=== PATIENT | male | born 1965 | race Caucasian/White ===

== ENCOUNTER 2016-09-23 10:28 | Inpatient (IN) | payer MEDICARE, OTHER ==
[2016-09-23] VITALS (12 sets, daily range): BP systolic 109–153; BP diastolic 67–93; PULSE 107–178; RESP 20–26; O2SAT 93–99
[~2016-09-23] VITALS: Ht 165.1 cm; Wt 96.7 kg
--- NOTE | 2016-09-23 10:57 | ED.REPORT ---
HPI-General Illness Date of Service Sep 23, 2016 ED Provider: Dr. Zuniga 51 year old male with a hx of alcoholism, TBI (1990) and HLD who [facility], confusion and palpitations since last night. Pt's last drink was 24 hours ago. He reports a TAO but denies nausea , vomiting, pain and melena. Yesterday the pt was noted to have multiple seizures. They state that his heart rate has been elevated (as high as 200) since yesterday. Pt denies a hx of Afib. His last period of sobriety was 2 years ago for 30 days while in rehab. Nursing Notes Stated Complaint: DISORIENTED/HIGH HR Chief Complaint: General Complaint Nursing Notes Reviewed: Yes Allergies: Coded Allergies: haloperidol (Verified Adverse Reaction, Severe, Agitation, 09/23/16) General Time Seen by MD: 10:57 Chief Complaint Multip medical complaints Hx Obtained From: Patient, Other family... Arrived By: Wheelchair Onset Occurred: Yesterday Symptom Duration: Since onset Severity: Current: No pain currently Associated with: Denies: Fever, Nausea, Shortness of breath, Vomiting Pertinent Negative: Relieved by nothing Similar Sx Previous: Yes Past Medical History Past Medical History Alcoholism TBI Reports: Hyperlipidemia, Denies: Diabetes mellitus Past Surgical History None Smoking History Never Smoker Social History Alcohol Use: >5 per day Drug Use: Denies drug use Other Social History: Smokeless tobacco, From out of town Review of Systems Full Review of Systems Constitutional: Reports: Fatigue, Denies: Chills, Fever Respiratory: Denies: Shortness of breath Cardiovascular: Reports: Palpitations GI: Denies: Melena, Nausea, Vomiting Neurologic: Reports: Confusion, Headache, Seizure Complete sys rev & neg: except as marked. Physical Exam Vital Signs Vital Signs Date Time Temp Pulse Resp B/P Pulse Ox O2 Delivery O2 Flow Rate FiO2 09/23/16 15:10 117 26 135/67 94 Room Air 09/23/16 14:08 110 20 126/77 99 Room Air 09/23/16 13:05 36.8 178 20 109/78 99 Room Air 09/23/16 10:30 36.8 130 24 153/93 95 Initial VS: Reviewed Head / Eyes: Atraumatic, Normocephalic, PERRL ENT: Conjunctiva normal, No scleral icterus Neck: Supple, Full range of motion Respiratory: Breath sounds normal, Clear to auscultation, No respiratory distress Extremities: Vascular intact, Neuro intact Psychiatric: Mood/affect normal, Behavior normal General/Constitutional: Awake, Alert Cardiovascular: Peripheral circulation NL Heart Rate / Rhythm: Positive: Irreg irregular rhythm, Tachycardia Skin: Warm Color / Condition: Positive: Diaphoresis present Rash / Lesion Notes: Erythematous macular rash to chest Neurologic: Oriented X3, Speech NL Tremulous Interpretation & Diagnostics Lab Results Interpretation Result Diagram: 09/23/16 1138 09/23/16 1138 Test 09/23/16 11:38 09/23/16 14:53 White Blood Count 15.1th/mm3 (3.8-10.1) Red Blood Count 4.59mil/mm3 (4.40-5.80) Hemoglobin 14.9g/dL (13.8-17.2) Hematocrit 43.6% (41.0-50.0) Mean Corpuscular Volume 95.0fL (81-100) Mean Corpuscular Hemoglobin 32.5pg (27.0-35.0) Mean Corpuscular Hemoglobin Concent 34.2% (32.0-37.0) Red Cell Distribution Width 14.0% (12.3-15.4) Platelet Count 147bil/L (150-400) Neutrophils (%) (Auto) 86.6% (40-74) Lymphocytes (%) (Auto) 4.6% (14-46) Monocytes (%) (Auto) 8.0% (4-12) Eosinophils (%) (Auto) 0.1% (0-5) Basophils (%) (Auto) 0.2% (0-3) Prothrombin Time 13.3sec (8.1-12.5) Prothromb Time International Ratio 1.24ratio Sodium Level 135mEq/L (134-144) Potassium Level 3.3mEq/L (3.5-5.2) Chloride Level 93mEq/L (97-108) Carbon Dioxide Level 21mmol/L (18-29) Blood Urea Nitrogen 8mg/dL (6-24) Creatinine 0.90mg/dL (0.76-1.27) Estimat Glomerular Filtration Rate 95mL/min (>59) Glucose Level 124mg/dL (60-99) Calcium Level 9.4mg/dL (8.5-10.1) Magnesium Level 1.4mg/dL (1.6-2.6) Total Bilirubin 1.7mg/dL (0.0-1.2) Aspartate Amino Transf (AST/SGOT) 162U/L (0-50) Alanine Aminotransferase (ALT/SGPT) 68U/L (0-44) Alkaline Phosphatase 161U/L (25-150) Troponin T < 0.010ug/L (0.0-0.011) Total Protein 8.6g/dL (6.4-8.4) Albumin 4.0g/dL (3.4-5.0) Hold [place] Top Tube Received (Received) Pro-B-Type Natriuretic Peptide 1263pg/mL (0-121) General Lab Results Interp 1: Labs reviewed ECG Interpretation ECG Interpretation: Afib with a rate of 167 Anterior infarct, old Time: 10:54 Interpreted by: ED physician X-Ray Chest Interpretation Chest Xray Interpretation: IMPRESSION: No acute cardiopulmonary abnormality Dictated by: Guy Whitman M.D. on 09/23/2016 at 11:44 View: Portable, 1 view Interpretation / Wet Read by: Interpret - Radiologist Re-Eval/Medical Decision Med Decision/Clinical Course Diltiazem did not have much effect on the atrial fibrillation. We went ahead and used metoprolol which seemed to work better. IV hydration and electrolyte repletion seemed to have helped as well. Time of Eval: 14:07 Re-Evaluation/Progress Note: Pt updated of labs, imaging and ECG. Recommended admission. Pt understands and agrees with plan. All questions addressed. Time of Eval: 14:30 Re-Evaluation/Progress Note: Pt still in Afib with RVR. Consultation : Referral / Consult Name: Kiarra Cast MD Consulted With: Hospitalist Call Returned at: 14:15 Industrial Maintenance Technician: Will see patient, Agrees with eval, Agrees with plan, Accepts admit Counseled Regarding: Diagnosis, Lab results, Need for admission Discharge & Departure Primary Impression: Atrial fibrillation with RVR Additional Impression: Alcohol withdrawal Complication of substance-induced condition: with unspecified complication Qualified Code: F10.239 - Alcohol dependence with withdrawal, unspecified Disposition: ADMITTED TO HOSPITAL Discharge Condition All VS Reviewed: Yes Scribe Attestation Portions of this note were transcribed by Jackie Montiel. I, (Dr. Zuniga) personally performed the history, physical exam and medical decision-making; I reviewed and confirmed the accuracy of the information in the transcribed note. Signed by: Jackie Montiel. 09/23/2016, Keron Riddle MD Sep 23, 2016 10:57 Jackie Montiel Sep 23, 2016 11:01
[2016-09-23] MEDS ORDERED: Diltiazem 5 mg/mL 5 mL Inj IVPUSH ONE ×2 (11:20→12:10)
--- NOTE | 2016-09-23 11:46 | DRSVH ---
PROCEDURE: X-RAY CHEST ONE VIEW, PORTABLE ([id number]) INDICATIONS: SOB TECHNIQUE: One view of the chest was acquired. COMPARISON: None. FINDINGS: Surgical changes and devices: None. Lungs and pleura: No pleural effusions or pneumothorax. Mild elevation right hemidiaphragm. Lungs ar e clear. Mediastinum: Mediastinal contours appear normal. Heart size is normal. Bones and chest wall: No suspicious bony lesions. Overlying soft tissues appear unremarkable. IMPRESSION: No acute cardiopulmonary abnormality Dictated by: Guy Whitman M.D. on 09/23/2016 at 11:44 Approved by: Guy Whitman M.D. on 09/23/2016 at 11:44
[2016-09-23 11:52] LABS: BASOPHILS % (AUTO) 0.2 % (0-3); EOSINOPHILS % (AUTO) 0.1 % (0-5); Mean Corpuscular Hemoglobin 32.5 pg (27.0-35.0); NEUTROPHILS % (AUTO) 86.6 % (40-74); Platelet Count 147 bil/L (150-400)
[2016-09-23] MEDS ORDERED: Multivitamin w/Vit K Inj 10 ML, Thiamine Inj 100 MG, Folic Acid Inj 1 MG, Magnesium Sul... IV ONE ×5 (12:08)
[2016-09-23] MEDS ORDERED: 0.9% Sodium Chloride 1,000 ML IV ONE (12:10)
[2016-09-23 12:11] LABS: INR 1.24 ratio
[2016-09-23 12:22] LABS: TROPONIN T < 0.010 ug/L (0.0-0.011)
[2016-09-23 12:30] LABS: Magnesium 1.4 mg/dL (1.6-2.6)
[2016-09-23] MEDS ORDERED: Magnesium Sulf 2 Gm/50mL Water 2 GM in IV Premix 1 EACH IV ONE (13:20)
[2016-09-23] MEDS ORDERED: MeTOProlol 1 mg/mL 5 mL Inj IVPUSH SCH (13:25)
[2016-09-23] MEDS ORDERED: Ondansetron 2 mg/mL 2 mL Inj IVPUSH PRN (15:00)
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
[2016-09-23 17:56] LABS: Magnesium 2.2 mg/dL (1.6-2.6)
--- NOTE | 2016-09-23 18:44 | NUR ---
Admit Pt admit finished, telemetry on afib low 100's to 130's with exertion, IV SL, on RA, A&Ox3 but delayed and forgetful. Pt eating dinner and tolerating food and liquids well. Continuing to monitor.
[2016-09-23] MEDS: MeTOProlol 1 mg/mL 5 mL Inj IVPUSH PRN (18:55)
--- NOTE | 2016-09-23 19:02 | NUR ---
Afib 130's - 190's Per county program technician, pt HR increased to 130-190's at approx 1850. PRN metoprolol 5 mg given, notified. Continuing to monitor. NAKIA nurse aware. Addendum: 09/23/16 at 1922 by CLAUDIO FINE RN S/W , wants update on metoprolol effectiveness boyd. NAKIA nurse taking over will handle from here, she is calling county program technician now and will notify immediately.
[2016-09-23] MEDS ORDERED: Potassium Phos (mMol) Inj 15 MMOL in Dextrose 5% 250 ML IV ONE (19:40)
[2016-09-23] MEDS ORDERED: Diltiazem Inj 125 MG in 0.9% Sodium Chloride 100 ML, Pharmacy To Mix 1 EA IV SCH (19:40)
[2016-09-23] MEDS ORDERED: Lactulose 20 Gm/30 mL 30 mL Syrup PO ONE (19:40)
[2016-09-23] MEDS: MeTOProlol 1 mg/mL 5 mL Inj IVPUSH STA ×2 (20:11→20:38)
[2016-09-23] MEDS ORDERED: Diltiazem 5 mg/mL 5 mL Inj IV ONE (20:40)
[2016-09-23] MEDS: Divalproex (QD) 500 mg ER24 Tablet PO SCH (21:12)
[2016-09-23] MEDS: 0.9% Sodium Chloride 1,000 ML IV SCH (21:48)
[2016-09-23] MEDS ORDERED: HYDROmorphone 1 mg/mL Inj IVPUSH ONE (23:05)
[2016-09-23] MEDS ORDERED: Digoxin 0.25 mg/mL 2 mL Inj IV ONE (23:25)
[2016-09-24] VITALS (10 sets, daily range): BP systolic 113–139; BP diastolic 70–112; PULSE 70–173; RESP 12–36; O2SAT 90–99
[2016-09-24 02:07] LABS: Free Thyroxine Index 2.8 (1.2-4.9); Hepatitis A Antibody IgM Negative (Negative); Hepatitis B Core Antibody IgM Negative (Negative); Thyroxine (T4) 9.6 ug/dL (4.5-12.0)
[2016-09-24] MEDS: Digoxin 0.25 mg/mL 2 mL Inj IV SCH ×2 (03:17→08:18)
--- NOTE | 2016-09-24 03:36 | NUR ---
Tachycardia and CIWA overnight HR: At start of shift patient ranging between 130-190s. After IV metoprolol and multiple doses of valium patient down to 120s. Then immediatly back up to 145-150s and 170's with exertion. MD notified multiple times. Ambien administered. Later Digoxin IV push was ordered and brought HR down to 90-115. Digoxin IV now scheduled Q6 hours. Last dose given 0300 for HR 82 (double checked with night hospitalist) CIWA: Highest score 28. Last three scores 10,12,13.
[2016-09-24] MEDS: 0.9% Sodium Chloride 1,000 ML IV SCH ×3 (06:23→22:02)
[2016-09-24] MEDS ORDERED: DIVA500T14 PO (06:41)
[2016-09-24] MEDS ORDERED: OLAN10TA19 PO (06:42)
[2016-09-24] MEDS ORDERED: LIP40 PO (06:42)
[2016-09-24] MEDS ORDERED: MULT-1103 PO (06:44)
[2016-09-24 07:43] LABS: Mean Corpuscular Hemoglobin 31.8 pg (27.0-35.0); Mean Corpuscular Volume 97.9 fL (81-100)
[2016-09-24] MEDS ORDERED: Influenza (Adult) Vaccine 0.5 mL Syringe IM ONE (08:30)
[2016-09-24] MEDS: Multivit-Miner-Folic Acid-Iron Tablet PO SCH (08:45)
[2016-09-24] MEDS ORDERED: KCl 40 mEq/D5W 500 mL 40 MEQ in IV Premix 1 EACH IV ONE (09:30)
[2016-09-24] MEDS ORDERED: MeTOProlol 1 mg/mL 5 mL Inj IVPUSH PRN (10:30)
--- NOTE | 2016-09-24 10:33 | PCM.PNMED ---
Subjective Date of Service Sep 24, 2016 Subjective This morning the patient states that he must be out of here by Tuesday because [facility]. He also said he should be up walking around. When told that his HR can get up to 160 with any movement, he states that his legs are getting weak being in bed and that is why his HR goes up. He is agitated and doesn't know how a bunch of chemicals can help his heart. Exam Vital Signs Vital Sign - Last Date Time Temp Pulse Resp B/P Pulse Ox O2 Delivery O2 Flow Rate FiO2 09/24/16 10:18 36.6 115 20 124/82 93 Room Air 09/23/16 22:58 2.00 Intake and Output 09/23/16 09/23/16 09/24/16 Cumulative From/Thru 15:00 23:00 07:00 09/23/16 10:30 - 09/24/16 06:27 Intake Total 0 ml 1241 ml 1241 ml Output Total 400 ml 400 ml Balance -400 ml 1241 ml 841 ml Intake Oral 0 ml 0 ml IV Total 1241 ml 1241 ml Output Urine Total 400 ml 400 ml Exam General: alert, agitated but laying in bed Eyes: PERRL Mouth: mouth normal, mucous membranes moist/pink Neck: supple, no lymph nodes palpable Chest & Lungs: clear to auscultation, no adventitious breath sounds, no crackles , no wheeze Cardiovascular: tachycardia Pulses: Radial (present and equal), Dorsalis Pedi (present and equal) Abdomen: soft, non-tender, non-distended, normoactive bowel tones, unable to assess liver and spleen at this time because patient's agitation. Will re-assess Musculoskeletal: No swollen or erythematous joints Extremities: tremor in B/L hands and B/L LE Skin: Small healing wound on dorsum of left foot, 1cm, no edema, erythema, warmth Neurological: Grossly neurologically intact, normal speech. I was later able to observe his walking with assistance -- very unsteady on feet and slow. IVs and Medications Medications Reviewed: Medications were reviewed in detail Lab and Diagnostics Result Diagram: 09/24/1630 09/24/16 0630 X-Rays, CTs and MRIs Date of Service: 09/23/16 1044 PROCEDURE: X-RAY CHEST ONE VIEW, PORTABLE ([id number]) INDICATIONS: SOB TECHNIQUE: One view of the chest was acquired. COMPARISON: None. FINDINGS: Surgical changes and devices: None. Lungs and pleura: No pleural effusions or pneumothorax. Mild elevation right hemidiaphragm. Lungs are clear. Mediastinum: Mediastinal contours appear normal. Heart size is normal. Bones and chest wall: No suspicious bony lesions. Overlying soft tissues appear unremarkable. IMPRESSION: No acute cardiopulmonary abnormality Dictated by: Guy Whitman M.D. on 09/23/2016 at 11:44 Assessment & Plan RVR new onset atrial fibrillation, present on admission, acute -- new onset Atrial fibrillation RVR-- monitor electrolytes, troponin negative x1, T4 normal, -- echocardiogram pending -- ASA, IVF -- metoprolol and diltiazem for rate control -- no PCP follow up since 03/2016 at [place], likely noncompliant with medications -- telemetry, HR 100s when in bed, 170s with activity Delirium tremens. Present on admission. Ongoing --Visual hallucinations -- reported chronic seizures vs posturing since TBI hx. Close monitoring. On Depakote. Fall precautions. Bumpers on bed. -- [facility] protocol -- Hepatitis panel negative, consider ultrasound -- Note Haldol allergic -- elevated ammonia, lactulose -- Banana bag, replace electrolyte abnormalities Elevated glucose, present on admission, unknown chronicity -- Pending A1c Chronic issues known prior to admission, present on admission, resume home meds Traumatic brain injury/mental health Psychotic disorder dyslipidemia Diet advance as tolerated DVT prophylaxis lovenox with hold parameters ambulate Code full Disposition inpatient status VTE Prophylaxis: Sub-Q Enoxaparin Resuscitation Status: CPR: Attempt Resuscitation Sulema Arroyo DO Sep 24, 2016 10:33
[2016-09-24] MEDS: MeTOProlol 1 mg/mL 5 mL Inj IVPUSH PRN (11:54)
--- NOTE | 2016-09-24 12:34 | NUR ---
Social Work: Screening Data: Pt is a 51 y/o male admitted for a-fib, RVR. Pt's PCP is [facility], pt's [facility] is [facility]. Pt's readmit score is 1. Pt CIWA score this morning was 10. BOATBUILDER APPRENTICE WOOD will conduct CD assessment when appropriate. BOATBUILDER APPRENTICE WOOD will continue to follow. Assessment: Pt who is independent at baseline, alcohol withdrawal. Plan: BOATBUILDER APPRENTICE WOOD will conduct CD assessment when appropriate. Pt will d/c home via POV when medically stable. BOATBUILDER APPRENTICE WOOD will continue to follow. NORA Aguilar
[2016-09-24] MEDS ORDERED: Diltiazem 5 mg/mL 5 mL Inj IVPUSH ONE (12:45)
--- NOTE | 2016-09-24 12:46 | NUR ---
Nahidy Pt hr 140-180's given Metoprolol IV push, Valium IV, and digoxin with little relief. notified, given order for one time dose of Diltiazem 10 mg IV push, it pt can maintain HR 110 then will transfer to [facility] with Diltiazem drip. Will continue to monitor. Addendum: 09/24/16 at 1424 by SHERRI JOHNSON RN Unable to maintain HR 110 or below. Pushed one time dose of Diltiazem, and pt went into the 90s for approximately 30 minutes then has been between 115-170s. Notifying for orders to transfer pt to [facility].
--- NOTE | 2016-09-24 14:29 | NUR ---
spiritual care: pt request conversational visit. pt described brain injury and effects he lives with. jumbled content, but effort in communication. He shared the discharge plans mostly on his mind. pt amish and samaritan reformed background. he described how his tresa important to him prayer.
[2016-09-24] MEDS: Diltiazem Inj 125 MG in 0.9% Sodium Chloride 100 ML, Pharmacy To Mix 1 EA IV SCH (15:29)
--- NOTE | 2016-09-24 15:48 | NUR ---
Transfer Pt transferred to [facility]20[facility], report was given to Jenn Brady RN.
[2016-09-24] MEDS ORDERED: Dexmedetomidine 400 mCg/100 mL NS Premix IV ONE (16:26)
[2016-09-24] MEDS: Dexmedetomidine 400 mCg/100 mL 400 MCG in IV Premix 1 EACH IV SCH ×2 (16:28→21:43)
[2016-09-24] MEDS ORDERED: PHENobarbital 65 mg/mL Inj IV ONE (16:55)
--- NOTE | 2016-09-24 17:37 | NUR ---
Social Work: Update D: Per weigher and charger, pt transferred to CCU bed 2019 from [facility] due to uncontrolled heart rate. A: Pt who currently on CIWA protocol. P: HISTOLOGY ASSISTANT to follow up with pt once appropriate for CD assessment. HISTOLOGY ASSISTANT to continue to follow. NORA Schneider
--- NOTE | 2016-09-24 18:13 | NUR ---
Heart Rate/CIWA: Pt transferred [place] [facility] to start Cardizem gtt, tele AFib with rates 130s-200s, up to 220s with activity/agitation. CIWA on arrival to unit 23, rapidly escalating to mid 30s, pt in 4pt restraints r/t violent and agressive behavior. Pt given multiple doses of Valium, started on Precedex gtt, received Phenobarbital. See CCU flowsheet for details. Currently, Cardizem gtt off and tele AFib 70s with BP 100/48. Precedex gtt infusing at 0.6mcg/kg/hr, pt sleeping, pt machine tool technology instructor at bedside. Care ongoing.
[2016-09-24] MEDS: Divalproex (QD) 500 mg ER24 Tablet PO SCH (22:34)
[2016-09-25] VITALS (8 sets, daily range): BP systolic 113–130; BP diastolic 73–96; PULSE 69–80; RESP 22–28; O2SAT 94–98
[2016-09-25] MEDS: 0.9% Sodium Chloride 1,000 ML IV SCH ×3 (03:06→20:17)
[2016-09-25] MEDS: Dexmedetomidine 400 mCg/100 mL 400 MCG in IV Premix 1 EACH IV SCH ×2 (03:07→10:26)
[2016-09-25 04:09] LABS: BASOPHILS % (AUTO) 0.4 % (0-3); EOSINOPHILS % (AUTO) 1.8 % (0-5); MONOCYTES % (AUTO) 8.1 % (4-12); Mean Corpuscular Hemoglobin 32.3 pg (27.0-35.0); Mean Corpuscular Volume 98.8 fL (81-100); NEUTROPHILS % (AUTO) 75.1 % (40-74); Platelet Count 124 bil/L (150-400)
--- NOTE | 2016-09-25 06:41 | NUR ---
Mentation/Anxiety Pt remains on restraints. He is only oriented to self when awake. Pt will try and get out of bed, and is confused when totally awake. Speech mumbled with pt drowsy and tries to speak. Mostly non coherent speech. Per pt, the mumbled speech is abnormal for him "why am I talking like this" and will then drift off to sleep. HR was 70s throughout shift except when pt became awake and HR jumped to 120s with pt agitation. Care ongoing
[2016-09-25] MEDS ORDERED: KCl 40 mEq/D5W 500 mL 40 MEQ in IV Premix 1 EACH IV ONE (07:35)
--- NOTE | 2016-09-25 08:22 | DRSVH ---
PROCEDURE: X-RAY CHEST ONE VIEW, PORTABLE ([id number]) INDICATIONS: hypoxia pulmonary edema TECHNIQUE: One view of the chest was acquired. COMPARISON: None. FINDINGS: Surgical changes and devices: None. Lungs and pleura: Lung volumes are low. There is diffuse interstitial prominence. Mediastinum: Mediastinal contours appear normal. Heart size is enlarged. Bones and chest wall: No suspicious bony lesions. Overlying soft tissues appear unremarkable. IMPRESSION: Interstitial prominence and cardiomegaly suggesting congestive failure. Dictated by: Mikala Bagley M.D. on 09/25/2016 at 8:20 Approved by: Mikala Bagley M.D. on 09/25/2016 at 8:20
[2016-09-25] MEDS: Multivit-Miner-Folic Acid-Iron Tablet PO SCH (09:57)
--- NOTE | 2016-09-25 13:59 | PCM.PNMED ---
Subjective Date of Service Sep 25, 2016 Subjective pt required significant dose of valium, phenobarbital, eventually Precedex gtt, In AM, pt looked too lethargic, didn't follow commands Exam Vital Signs Vital Sign - Last Date Time Temp Pulse Resp B/P Pulse Ox O2 Delivery O2 Flow Rate FiO2 09/25/16 12:30 37.3 72 23 121/82 97 OxyMask 4.00 Intake and Output 09/24/16 09/24/16 09/25/16 Cumulative From/Thru 15:00 23:00 07:00 09/23/16 10:30 - 09/25/16 06:37 Intake Total 2042 ml 2285 ml 1773 ml 7341 ml Output Total 1300 ml 1100 ml 2800 ml Balance 742 ml 1185 ml 1773 ml 4541 ml Intake Oral 1000 ml 1952 ml 200 ml 3152 ml IV Total 1042 ml 333 ml 1573 ml 4189 ml Output Urine Total 1300 ml 1100 ml 2800 ml # Voids 4 3 2 9 # Bowel Movements 2 2 0 4 Exam obese male, NAD, lethargic, unable to assess tongue fasciulation, PERRLA no JVD, MMM, no LAD RRR, nl s1, s2 no mrg CTAB, no w,c S,distended,NT,normoactive BS+ warm, no edema, pulses 2/2 IVs and Medications Medications Reviewed: Medications were reviewed in detail Lab and Diagnostics Result Diagram: 09/25/165 09/25/16 033 X-Rays, CTs and MRIs Date of Service: 09/23/16 1044 PROCEDURE: X-RAY CHEST ONE VIEW, PORTABLE ([id number]) INDICATIONS: SOB TECHNIQUE: One view of the chest was acquired. COMPARISON: None. FINDINGS: Surgical changes and devices: None. Lungs and pleura: No pleural effusions or pneumothorax. Mild elevation right hemidiaphragm. Lungs are clear. Mediastinum: Mediastinal contours appear normal. Heart size is normal. Bones and chest wall: No suspicious bony lesions. Overlying soft tissues appear unremarkable. IMPRESSION: No acute cardiopulmonary abnormality Dictated by: Guy Whitman M.D. on 09/23/2016 at 11:44 Assessment & Plan 51yo M w/ active ETOH abuse, psychotic d/o, TBI, HLD p/w reporeted seizure, active hallucinations, concerning for DTs. acute, active #Delirium tremens given severe autonomic instabilities, fevers, significant CIWA scores, high benzo requirement, Present on admission. failed CIWA initially , required phenobarbital, currently sedated with Precedex, maintained airways. -will primary use benzo, librium 50mg q6h and taper down Precedex if possible -valium as needed per CIWA protocol -replete Mg, K as needed -frequent neurocheck, #RVR new onset atrial fibrillation in the setting of DTs, new onset, controlled with diltiazem gtt, switch to oral, rate now in target -FU TTE, -cw metoprolol 25mg bid for now -will do stratification, PQT3SCEC6 score, consider AC, however, questionable given substance abuse, noncompliance #TBI with seizure d/o, reported seizure could be from DTs -cw Depakote, avoid new med lowering seizure threshold. chronic, stable #Elevated glucose, present on admission, a1c 6.3 #Psychotic disorder, will investigate further hx, initially hallucination could possible from underlying psych dz, cw olanzapine #HLD, cw lipitor dvt ppx:LMWH diet: NPO, advance as tolerate full code dispo: likely 2-3days given active withdrawal VTE Prophylaxis: Sub-Q Enoxaparin Resuscitation Status: CPR: Attempt Resuscitation Time spent 35min Billie Galeas MD Sep 25, 2016 13:58
[2016-09-25] MEDS: Diltiazem Inj 125 MG in 0.9% Sodium Chloride 100 ML, Pharmacy To Mix 1 EA IV SCH (14:35)
[2016-09-25] MEDS: chlordiazePOXIDE 25 mg Capsule PO PRN (16:58)
--- NOTE | 2016-09-25 17:22 | NUR ---
Mentation: CIWA 8-15, pt remains disoriented/tremulous/some hallucinations. Continues to be very impulsive/uncooperative while awake, restraints in place. Precedex gtt titrated down, currently at 0.3mcg/kg/hr, see CCU flowsheet for details. Given 50mg Librium per MD orders. Pt is intermittently incontinent, marizol care provided as needed, wearing brief. Care ongoing.
[2016-09-25] MEDS: Divalproex (QD) 500 mg ER24 Tablet PO SCH (20:15)
[2016-09-26] VITALS (7 sets, daily range): BP systolic 115–130; BP diastolic 44–94; PULSE 60–109; RESP 16–21; O2SAT 93–99
[2016-09-26] MEDS: 0.9% Sodium Chloride 1,000 ML IV SCH ×3 (02:26→18:15)
[2016-09-26 04:25] LABS: BASOPHILS % (AUTO) 0.2 % (0-3); EOSINOPHILS % (AUTO) 2.4 % (0-5); MONOCYTES % (AUTO) 11.3 % (4-12); Mean Corpuscular Hemoglobin 32.3 pg (27.0-35.0); Mean Corpuscular Volume 98.2 fL (81-100); NEUTROPHILS % (AUTO) 73.3 % (40-74); Platelet Count 146 bil/L (150-400)
[2016-09-26 04:39] LABS: Magnesium 1.5 mg/dL (1.6-2.6); Phosphorus 3.1 mg/dL (2.5-4.9)
[2016-09-26] MEDS: Dexmedetomidine 400 mCg/100 mL 400 MCG in IV Premix 1 EACH IV SCH ×2 (04:56→18:14)
--- NOTE | 2016-09-26 05:02 | NUR ---
CIWA/Cardiac/Resp Patient resting calm this shift, titrated Precedex off at 0300 and then patient started getting restless at 0445, Restarted Precedex and titrated back to 0.3mcg/kg/hr. HR 150-170's with activity and moving in bed, patient stated "I want a few beers", HR decreased to the 80-90's within a few minutes when calm, O2 5L Oxymask, sats upper 90's, incontinent at times but also voids in urinal if asked if patient needs to void, AM labs drawn and MD notified of K 3.5 and Mag 1.5 and stated he will write orders for replacement, will continue to monitor, restraints DC'd at 0420. Addendum: 09/26/16 at 0508 by DEBI BOYLE RN Amended: Links added.
[2016-09-26] MEDS ORDERED: Magnesium Sulf 2 Gm/50mL Water 2 GM in IV Premix 1 EACH IV ONE (05:05)
[2016-09-26] MEDS ORDERED: Potassium Chloride 20 mEq SR Tablet PO ONE (05:05)
[2016-09-26] MEDS: Multivit-Miner-Folic Acid-Iron Tablet PO SCH (08:35)
[2016-09-26] MEDS: Diltiazem Inj 125 MG in 0.9% Sodium Chloride 100 ML, Pharmacy To Mix 1 EA IV SCH (14:35)
--- NOTE | 2016-09-26 16:18 | PCM.PNMED ---
Subjective Date of Service Sep 26, 2016 Subjective Garret Castellon is a 51-year-old gentleman with alcohol use disorder now in withdrawal, seizure disorder, psychotic disorder, obesity, and dyslipidemia who was admitted on 09/23/2016 in active alcohol withdrawal. Patient has since been difficult to manage on dexmedetomidine, diazepam, and phenobarbital. Patient was found sleeping comfortably with oxygen mask in place. He was moderately difficult to arouse, but could answer simple questions. Review of systems could not be completed, however, due to current medical/mental status. Overnight: Nursing notes reviewed. Patient was easily agitated and desaturated with increased doses of dexmedetomidine. . Exam Vital Signs Vital Sign - Last Date Time Temp Pulse Resp B/P Pulse Ox O2 Delivery O2 Flow Rate FiO2 09/26/16 12:11 Supplement Oxygen 09/26/16 12:09 37.0 74 20 120/94 99 2.00 Intake and Output 09/25/16 09/25/16 09/26/16 Cumulative From/Thru 15:00 23:00 07:00 09/23/16 10:30 - 09/26/16 05:27 Intake Total 1925 ml 9266 ml Output Total 1350 ml 4150 ml Balance 575 ml 5116 ml Intake Oral 600 ml 3752 ml IV Total 1325 ml 5514 ml Output Urine Total 1350 ml 4150 ml # Voids 2 11 # Bowel Movements 0 4 Exam General: No acute distress, well-developed, obese, sedated in withdrawal HEENT: Normocephalic, atraumatic. External ears without defect. Anicteric sclerae, moist conjunctivae, and no lid lag. Oropharynx free of erythema and cobble stoning with moist mucosa. Neck: Supple with full range of motion. No jugular venous distension. No bruits. No lymphadenopathy or thyromegaly. Cardiovascular: Regular rate and rhythm with no murmurs, rubs, or gallops appreciated Pulmonary: Clear to auscultation bilaterally with no crackles, wheezes, or rhonchi. Normal respiratory effort with no use of accessory muscles. Abdomen: Bowel tones present. Soft, nontender, distended. No hepatosplenomegaly or masses appreciated. Extremities: No clubbing, cyanosis, edema, or lymphadenopathy appreciated. Skin: Normal temperature, turgor, and texture; no rash, ulcers, or subcutaneous nodules appreciated. Neurological: Patient able to move all fours without gross focal deficit. Psychiatric: Still in active withdrawal. Arousable, but not coherent or oriented. . IVs and Medications Medications Reviewed: Medications were reviewed in detail Lab and Diagnostics Result Diagram: 09/26/16 0400 09/26/16 1014 X-Rays, CTs and MRIs X-RAY CHEST ONE VIEW, PORTABLE IMPRESSION: Interstitial prominence and cardiomegaly suggesting congestive failure. Dictated and approved by: Mikala Bagley M.D. on 09/25/2016 at 8:20 X-RAY CHEST ONE VIEW, PORTABLE IMPRESSION: No acute cardiopulmonary abnormality Dictated and approved by: Guy Whitman M.D. on 09/23/2016 at 11:44 . Assessment & Plan Garret Castellon is a 51-year-old gentleman with alcohol use disorder now in withdrawal, seizure disorder, psychotic disorder, obesity, and dyslipidemia who was admitted on 09/23/2016 in active alcohol withdrawal. Patient has since been difficult to manage on dexmedetomidine, diazepam, and phenobarbital. 1. Alcohol use disorder in active withdrawal, present on admission. Ongoing. - Continue dexmedetomidine, diazepam (intravenous), chlordiazepoxide as needed for sedation; minimize use as able, per [facility] protocol - Continue thiamine replacement Continue to monitor closely 2. Atrial fibrillation, new onset, present on admission. Controlled. - Continue rate control with oral metoprolol and as needed intravenous metoprolol - Consider need for anticoagulation prior to discharge; until then, continue with subcutaneous enoxaparin 3. Seizure disorder, chronic. Under therapy. - Likely secondary to previous traumatic brain injury or prior history of withdrawal - Continue divalproex Continue to monitor closely for new seizure activity 4. Tobacco use disorder, present on admission. Ongoing. - Continue nicotine replacement therapy 5. Dyslipidemia, chronic. Ongoing. - Continue atorvastatin 6. Uncharacterized psychiatric disorder, presumed chronic. Under therapy. - Continue olanzapine 7. Hypokalemia/hypomagnesemia. Ongoing. - Replacement protocol as needed Disposition: Anticipate discharge in 72-96 hours, pending resolution of alcohol withdrawal. . Pain Evaluation: Adequate Pain Control VTE Prophylaxis: Sub-Q Enoxaparin Resuscitation Status: CPR: Attempt Resuscitation Broderick He MD Sep 26, 2016 16:18
--- NOTE | 2016-09-26 19:12 | NUR ---
CIWA/cardiac Precedex gtt infusing at 0.2mcg/kg/hr for ETOH withdrawal. PRN Valium administered for CIWA > 10. Impulsivity and restlessness noted with decreased precedex dose, continuing to monitor and titrate gtt as necessary. Atrial fibrillation per kindergarten paraprofessional. HR controlled in the 70s to 90s at rest, 120s to 140s with exertion.
[2016-09-26] MEDS: Divalproex (QD) 500 mg ER24 Tablet PO SCH (19:29)
[2016-09-27] VITALS (9 sets, daily range): BP systolic 113–156; BP diastolic 80–116; PULSE 65–106; RESP 18–22; O2SAT 93–99
[2016-09-27 03:40] LABS: BASOPHILS % (AUTO) 0.4 % (0-3); EOSINOPHILS % (AUTO) 2.9 % (0-5); MONOCYTES % (AUTO) 11.8 % (4-12); Mean Corpuscular Hemoglobin 32.6 pg (27.0-35.0); NEUTROPHILS % (AUTO) 72.3 % (40-74); Platelet Count 178 bil/L (150-400)
[2016-09-27 04:03] LABS: Magnesium 1.6 mg/dL (1.6-2.6); Phosphorus 3.9 mg/dL (2.5-4.9)
[2016-09-27] MEDS: 0.9% Sodium Chloride 1,000 ML IV SCH ×3 (05:51→21:45)
--- NOTE | 2016-09-27 07:03 | NUR ---
Mentation/CIWA Pt still has hallucinations when awake. He would see people exchanging books in his room, and reports that his brother/step brother came and took him home for a bit, then brought him back. Speech is significantly less mumbled, but pt seems just as confused and disoriented as he was at start of shift. Easily reoriented most of the times. Precedex gtt titrated when pt not reoriented. Valium IVP when Precedex is not enough. Tolerated regimen well for most of night. Care ongoing
[2016-09-27] MEDS: Dexmedetomidine 400 mCg/100 mL 400 MCG in IV Premix 1 EACH IV SCH ×3 (07:51→23:33)
[2016-09-27] MEDS: Multivit-Miner-Folic Acid-Iron Tablet PO SCH (08:13)
--- NOTE | 2016-09-27 11:23 | NUR ---
Evaluation completed. Please go to "Notes" then click on "Assessments and Notes" (bottom left corner of screen). Then select appropriate discipline tab on top of screen.
--- NOTE | 2016-09-27 14:28 | NUR ---
Mentation Pt on 0.3mcg/kg/min Precedex gtt. Pt attempting to get out of bed, restless, and picking at lines. Alert to where he is but not why. Needs frequent instructions 5mg Valium given IV PRN. Pt fell asleep waking up stating he does not like the medicine. Notified [facility] team. Valium should be held while Ativan PO new order attempted. Precedex remains. Swallow eval completed. Stim diet with assist to sips of H20, notify ST if any coughing with swallowing. PT worked with pt,unstable to stand but sat at edge of bed. Incontinent of urine, brief on.
[2016-09-27] MEDS: Diltiazem Inj 125 MG in 0.9% Sodium Chloride 100 ML, Pharmacy To Mix 1 EA IV SCH (14:35)
[2016-09-27] MEDS: LORazepam 1 mg Tablet PO PRN ×2 (15:02→20:28)
--- NOTE | 2016-09-27 17:32 | NUR ---
Transfer Pt transferred out of [facility] room #2019 at 1730 to [facility] room #2008. Report given to Lashay Whitmore RN. Remains on Precedex 0.3mcg. 6L O2 NC at 96% All personal belongings left with pt. Pt receiving 1mg Ativan PO PRN.
--- NOTE | 2016-09-27 20:28 | PCM.PNMED ---
Subjective Date of Service Sep 27, 2016 Subjective Garret Castellon is a 51-year-old gentleman with alcohol use disorder now in withdrawal, seizure disorder, psychotic disorder, obesity, and dyslipidemia who was admitted on 09/23/2016 in active alcohol withdrawal. Patient has since been difficult to manage on dexmedetomidine, diazepam, and phenobarbital. Patient somnolent this morning, slurring his words and difficult to arouse. He is able to respond to questions but his answers are not consistent with the questions asked. Difficult to assess review of systems due to patient's current mental status. He does deny chest pain, palpitations, shortness of breath, nausea or vomiting. No acute events overnight. Per nursing, patient was noted to have hallucinations when awake and his speech was mumbled, he was confused and disoriented. Received diazepam when Precedex was not enough. Exam Vital Signs Vital Sign - Last Date Time Temp Pulse Resp B/P Pulse Ox O2 Delivery O2 Flow Rate FiO2 09/27/16 05:35 71 20 118/87 96 Nasal Cannula 6.00 09/27/16 00:45 36.7 Intake and Output 09/26/16 09/26/16 09/27/16 Cumulative From/Thru 14:59 22:59 06:59 09/23/16 10:30 - 09/27/16 05:49 Intake Total 1557 ml 2182 ml 67180 ml Output Total 1425 ml 1550 ml 7125 ml Balance 132 ml 632 ml 5880 ml Intake Oral 600 ml 4352 ml IV Total 1557 ml 1582 ml 8653 ml Output Urine Total 1425 ml 1550 ml 7125 ml # Voids 2 13 # Bowel Movements 0 4 Exam General: Well-developed, obese male, lying in bed. Somnolent and appears agitated, pulling at his lines and trying to get out of bed. HEENT: Normocephalic, atraumatic. External ears without defect. Anicteric sclerae, moist conjunctivae, and no lid lag. Oropharynx free of erythema with moist mucosa. Neck: Supple with full range of motion. No jugular venous distension. No lymphadenopathy or thyromegaly. Cardiovascular: Regular rate and rhythm with no murmurs, rubs, or gallops appreciated Pulmonary: Clear to auscultation bilaterally with no crackles, wheezes, or rhonchi. Normal respiratory effort with no use of accessory muscles. Abdomen: Bowel tones present. Soft, nontender, distended. No hepatosplenomegaly or masses appreciated. Extremities: No clubbing, cyanosis, edema, or lymphadenopathy appreciated. Skin: Normal temperature, turgor, and texture; no rash, ulcers, or subcutaneous nodules appreciated. Neurological: Somnolent but easily aroused, oriented to self, somewhat time and place. No focal neurologic deficit. Psychiatric: Still in active withdrawal. IVs and Medications Medications Reviewed: Medications were reviewed in detail Lab and Diagnostics White Blood Count 8.4, Red Blood Count 4.39, Hemoglobin 14.3, Hematocrit 42.6, Mean Corpuscular Volume 97.0, Mean Corpuscular Hemoglobin 32.6, Mean Corpuscular Hemoglobin Concent 33.6, Red Cell Distribution Width 13.9, Platelet Count 178, Neutrophils (%) (Auto) 72.3, Lymphocytes (%) (Auto) 12.4, Monocytes ( %) (Auto) 11.8, Eosinophils (%) (Auto) 2.9, Basophils (%) (Auto) 0.4 Sodium Level 142, Potassium Level 4.2, Chloride Level 103, Carbon Dioxide Level 24, Blood Urea Nitrogen 4, Creatinine 0.54, Estimat Glomerular Filtration Rate 170, Glucose Level 79, Calcium Level 9.1, Phosphorus Level 3.9, Magnesium Level 1.6, Total Bilirubin 1.0, Aspartate Amino Transf (AST/SGOT) 82, Alanine Aminotransferase (ALT/SGPT) 53, Alkaline Phosphatase 121, Total Protein 6.6, Albumin 2.9 Result Diagram: 09/27/16 0300 09/27/16 0300 Microbiology Respiratory viral panel negative. MRSA screen negative. X-Rays, CTs and MRIs X-RAY CHEST ONE VIEW, PORTABLE IMPRESSION: Interstitial prominence and cardiomegaly suggesting congestive failure. Dictated and approved by: Mikala Bagley M.D. on 09/25/2016 at 8:20 X-RAY CHEST ONE VIEW, PORTABLE IMPRESSION: No acute cardiopulmonary abnormality Dictated and approved by: Guy Whitman M.D. on 09/23/2016 at 11:44 . Assessment & Plan Garret Castellon is a 51-year-old gentleman with alcohol use disorder now in withdrawal, seizure disorder, psychotic disorder, obesity, and dyslipidemia who was admitted on 09/23/2016 in active alcohol withdrawal. Patient has since been difficult to manage on dexmedetomidine, diazepam, and phenobarbital.Hospital day #5 1. Alcohol use disorder in active withdrawal, present on admission. Ongoing. - Continue dexmedetomidine, chlordiazepoxide as needed for sedation, per [facility] protocol. Taper as tolerated. - Patient incoherent and overly sedated with Valium. Will switch to Ativan po 1mg q3. - Continue thiamine replacement - Continue to monitor closely 2. Atrial fibrillation, new onset, present on admission. Controlled. - Continue rate control with oral metoprolol and as needed intravenous metoprolol - Continue with subcutaneous enoxaparin, initiate bridge to warfarin. - Echo pending - Will need close outpatient follow up. 3. Seizure disorder, chronic. Appears stable. - Likely secondary to previous traumatic brain injury or prior history of withdrawal - Continue divalproex - Continue to monitor closely for new seizure activity 4. Tobacco use disorder, present on admission. Active. - Continue nicotine replacement therapy 5. Dyslipidemia, chronic. Active. - Continue atorvastatin 6. Uncharacterized psychiatric disorder, presumed chronic. Under therapy. - Continue olanzapine 7. Hypokalemia/hypomagnesemia. Active - Replacement protocol as needed 8. Elevated serum glucose, present on admission, unknown chronicity. - HbA1c 6.3 (09/23/16) - Bedside glucose monitoring as diet advances - Start correctional insulin as needed 9. Chronic conditions, present on admission. Resume home medications. - Traumatic brain injury/mental health- depakote - Psychotic disorder- olanzapine Disposition: Anticipate discharge in 3-4 days, pending resolution of alcohol withdrawal. Pain Evaluation: Adequate Pain Control VTE Prophylaxis: Sub-Q Enoxaparin Resuscitation Status: CPR: Attempt Resuscitation Attending Statement The patient was seen and examined together with Dr. Clark on 09/27/2016 and I agree with the history, exam and plan as outlined in the note above. . Danae Clark DO Sep 27, 2016 07:22 Broderick He MD Sep 28, 2016 17:13
[2016-09-27] MEDS: Divalproex (QD) 500 mg ER24 Tablet PO SCH (20:44)
[2016-09-28] VITALS (9 sets, daily range): BP systolic 112–141; BP diastolic 66–107; PULSE 56–109; RESP 16–24; O2SAT 92–95
[2016-09-28] MEDS: 0.9% Sodium Chloride 1,000 ML IV SCH ×2 (01:25→09:44)
[2016-09-28] MEDS: Dexmedetomidine 400 mCg/100 mL 400 MCG in IV Premix 1 EACH IV SCH ×2 (02:55→07:09)
[2016-09-28 03:50] LABS: BASOPHILS % (AUTO) 0.6 % (0-3); EOSINOPHILS % (AUTO) 1.7 % (0-5); MONOCYTES % (AUTO) 12.3 % (4-12); Mean Corpuscular Hemoglobin 32.5 pg (27.0-35.0); Mean Corpuscular Volume 93.8 fL (81-100); NEUTROPHILS % (AUTO) 70.6 % (40-74); Platelet Count 171 bil/L (150-400)
[2016-09-28] MEDS: Lactulose 20 Gm/30 mL 30 mL Syrup PO SCH ×3 (03:55→21:08)
--- NOTE | 2016-09-28 05:48 | NUR ---
PT HAD MULTIPLE RUNS OF VTACH. HR UP TO 219 AT ONE POINT FOR A MOMENT. RN NOTIFIED.
--- NOTE | 2016-09-28 07:45 | NUR ---
Menation / CIWA Pt is agitated, anxious, confused, and combative. He attempted to pull out IV access a manipulating IV pump. He is unsteady on his gait and high fall risks but he is impulsive and attempting to get OOB without assistance. Precedex gtt titrated to control pts behavior. Also soft wrist restraints applied for safety. Pt was less anxious and not agitated. Precedex gtt decreased. Pt is awake and anxious again. Current rate 0.5 mcg. No overt complications noted.
[2016-09-28] MEDS: Multivit-Miner-Folic Acid-Iron Tablet PO SCH (08:30)
--- NOTE | 2016-09-28 09:51 | NUR ---
Somnolent/CIWA Pt too somnolent to administer PO meds safely this AM. Unable to score CIWA for same reason. Precedex titrated down and will reassess as mentation increases.
--- NOTE | 2016-09-28 11:36 | NUR ---
Faxed over prescriptions to the [facility]
--- NOTE | 2016-09-28 13:13 | NUR ---
Attempted Chemical dependency assessment D/A: Pt is a 51 year old male with a history of alcoholism who is currently admitted for alcohol withdrawal and afid with RVR. DINKEY ENGINE FIRER/FIREMAN attempted to meet with pt at bedside to complete CD assessment, however pt was too somnolent for assessment and had as recently as 0745 on 09/28 required soft restraints for his own safety due to agitation and confusion. DINKEY ENGINE FIRER/FIREMAN will attempt CD assessment at a later date when more appropriate. P: DINKEY ENGINE FIRER/FIREMAN to complete CD assessment for pt when more appropriate. NORA Kaminski
[2016-09-28] MEDS: chlordiazePOXIDE 25 mg Capsule PO PRN ×2 (14:26→21:06)
[2016-09-28] MEDS: Diltiazem Inj 125 MG in 0.9% Sodium Chloride 100 ML, Pharmacy To Mix 1 EA IV SCH (14:35)
[2016-09-28] MEDS: MeTOProlol 1 mg/mL 5 mL Inj IVPUSH PRN (18:12)
--- NOTE | 2016-09-28 18:12 | PCM.PNMED ---
Subjective Date of Service Sep 28, 2016 Subjective Garret Castellon is a 51-year-old gentleman with alcohol use disorder now in withdrawal, seizure disorder, psychotic disorder, obesity, and dyslipidemia who was admitted on 09/23/2016 in active alcohol withdrawal. Patient has since been difficult to manage on dexmedetomidine, diazepam, and phenobarbital. Patient somnolent and found lying in bed mumbling to himself. He continues to slur his words and appears to answer my questions but his responses are incoherent. He appears comfortable. He is easily aroused and opens his eyes on command. Review of systems difficult due to patient's mental status, he nods his head no to chest pain, shortness of breath, abdominal pain, nausea or vomiting. No acute events overnight. Per nursing, transferred to [facility]. Remains on Precedex 0.3mcg, 1mg Ativan PO PRN Exam Vital Signs Vital Sign - Last Date Time Temp Pulse Resp B/P Pulse Ox O2 Delivery O2 Flow Rate FiO2 09/28/16 03:35 36.6 84 20 141/107 95 Nasal Cannula 5.00 Intake and Output 09/27/16 09/27/16 09/28/16 Cumulative From/Thru 15:00 23:00 07:00 09/23/16 10:30 - 09/28/16 06:08 Intake Total 1349 ml 100 ml 41252 ml Output Total 1900 ml 9025 ml Balance -551 ml 100 ml 5429 ml Intake Oral 100 ml 4452 ml IV Total 1349 ml 82834 ml Output Urine Total 1900 ml 9025 ml # Voids 4 17 # Bowel Movements 4 Exam General: Well-developed, obese male, lying in bed. Somnolent and appears mumbling to himself, wrist restrains loosely in place HEENT: Normocephalic, atraumatic. Anicteric sclerae, moist conjunctivae, and no lid lag. Oropharynx free of erythema with moist mucosa. Neck: Supple, non-tender, No jugular venous distension. No lymphadenopathy Cardiovascular: Regular rate and rhythm with no murmurs, rubs, or gallops appreciated Pulmonary: Clear to auscultation bilaterally with no crackles, wheezes, or rhonchi. Normal respiratory effort. Abdomen: Bowel tones present. Soft, nontender, distended. No hepatosplenomegaly or masses appreciated. Extremities: No clubbing, cyanosis, or edema Skin: Normal temperature, turgor, and texture; no rash, ulcers, or subcutaneous nodules appreciated. Neurological: Somnolent but easily aroused, oriented to self, somewhat time and place. No focal neurologic deficit. Psychiatric: Still in active withdrawal. IVs and Medications Medications Reviewed: Medications were reviewed in detail Lab and Diagnostics White Blood Count 8.2, Red Blood Count 5.47, Hemoglobin 17.8, Hematocrit 51.3, Mean Corpuscular Volume 93.8, Mean Corpuscular Hemoglobin 32.5, Mean Corpuscular Hemoglobin Concent 34.7, Red Cell Distribution Width 13.8, Platelet Count 171, Neutrophils (%) (Auto) 70.6, Lymphocytes (%) (Auto) 14.7, Monocytes ( %) (Auto) 12.3, Eosinophils (%) (Auto) 1.7, Basophils (%) (Auto) 0.6 Sodium Level 138, Potassium Level 3.7, Chloride Level 100, Carbon Dioxide Level 26, Blood Urea Nitrogen 5, Creatinine 0.60, Estimat Glomerular Filtration Rate 151, Glucose Level 109, Calcium Level 9.3, Total Bilirubin 0.9, Aspartate Amino Transf (AST/SGOT) 80, Alanine Aminotransferase (ALT/SGPT) 53, Alkaline Phosphatase 160, Total Protein 7.5, Albumin 3.0 Result Diagram: 09/28/16 0300 09/28/16 030 Microbiology Respiratory viral panel negative. MRSA screen negative. X-Rays, CTs and MRIs X-RAY CHEST ONE VIEW, PORTABLE IMPRESSION: Interstitial prominence and cardiomegaly suggesting congestive failure. Dictated and approved by: Mikala Bagley M.D. on 09/25/2016 at 8:20 X-RAY CHEST ONE VIEW, PORTABLE IMPRESSION: No acute cardiopulmonary abnormality Dictated and approved by: Guy Whitman M.D. on 09/23/2016 at 11:44 . Assessment & Plan Garret Castellon is a 51-year-old gentleman with alcohol use disorder now in withdrawal, seizure disorder, psychotic disorder, obesity, and dyslipidemia who was admitted on 09/23/2016 in active alcohol withdrawal. Patient has since been difficult to manage on dexmedetomidine, diazepam, and phenobarbital.Hospital day #6 1. Alcohol use disorder in active withdrawal, present on admission. Ongoing. - Titrate off dexmedetomidine and continue chlordiazepoxide as needed, per [facility] protocol. - Continue thiamine replacement - Continue to monitor closely 2. Atrial fibrillation, new onset, present on admission. Controlled. - Continue rate control with oral metoprolol and as needed intravenous metoprolol - Continue with subcutaneous enoxaparin, initiate bridge to warfarin. - Echo pending 3. Seizure disorder, chronic. Appears stable. - Likely secondary to previous traumatic brain injury or prior history of withdrawal - Continue divalproex - Monitor closely for new seizure activity 4. Tobacco use disorder, present on admission. Active. - Continue nicotine replacement therapy 5. Dyslipidemia, chronic. Active. - Continue atorvastatin 6. Uncharacterized psychiatric disorder, presumed chronic. Under therapy. - Continue olanzapine 7. Hypokalemia/hypomagnesemia. Active - Replacement protocol as needed 8. Elevated serum glucose, present on admission, unknown chronicity. - HbA1c 6.3 (09/23/16) - Bedside glucose monitoring as diet advances - Start correctional insulin as needed 9. Chronic conditions, present on admission. Resume home medications. - Traumatic brain injury/mental health- depakote - Psychotic disorder- olanzapine Disposition: Anticipate discharge in 3-4 days, pending resolution of alcohol withdrawal. Pain Evaluation: Adequate Pain Control VTE Prophylaxis: Sub-Q Enoxaparin Resuscitation Status: CPR: Attempt Resuscitation Attending Statement The patient was seen and examined together with Dr. Clark on 09/28/2016 and I agree with the history, exam and plan as outlined in the note above. . Danae Clark DO Sep 28, 2016 06:57 Brdoerick He MD Sep 30, 2016 17:50
--- NOTE | 2016-09-28 19:23 | NUR ---
AFIB RVR/LOC/Sitter/Lactulose Cardiac: No s/s of chest pain. Tele: Afib 50-80's for most of the shift. This evening pt needed to use the BR due to lactulose. HR up to 180 when pt got up. IV metoprolol was given, HR down to 90-105, Dr Tan aware. Once again at the end of shift tele called, HR up to 180. BP only 90-50s, so metoprolol held. Resp: Pt denies SOB at rest. SPO2 95% on 4L NC this AM. Precedex DC'd and pt up ambulating with PT when mentation improved and pt was more alert. Vitals checked when pt ambulating. SPO2 94% on RA. Pt returned to bed and remained on RA. GI/: Stim diet ordered, sips of H2O OK. Pt not arousable enough for PO intake this AM. PO meds delayed this AM to allow increase in mentation. Using urinal frequently with assist. Brief in place for intermittent incontinence of urine. Lactulose given today for high ammonia levels. Neuro: Pt very somnolent this AM. Precedex DC'd and titrated down. Forgetful and needs simple commands. Picks at lines, restraints continue this AM. As mentation and alertness improved, restraints were removed at 14:30. Pt remains delusional and tries climbing out of bed. Sitter at bedside for safety starting at 15:30.
[2016-09-28] MEDS: Divalproex (QD) 500 mg ER24 Tablet PO SCH (21:08)
[2016-09-29] VITALS (12 sets, daily range): BP systolic 98–137; BP diastolic 64–87; PULSE 67–157; RESP 18–26; O2SAT 92–97
[2016-09-29] MEDS: MeTOProlol 1 mg/mL 5 mL Inj IVPUSH PRN ×3 (00:38→12:03)
--- NOTE | 2016-09-29 05:49 | NUR ---
Cardiac Pt continues in Afib 110's to 130's and will increase to 200's with activity. MD notifed and orders to give 5mg IVP Metoprolol were given. PT HR declined to 110's to 120's after administration and pt was resting. PT awake and moving more and HR increasing to 140's and 170's and into the 200's with activity. MD notified again and orders for another dose of 5mg Metoprolol given. Will administer and reassess.
[2016-09-29 06:06] LABS: Mean Corpuscular Hemoglobin 32.2 pg (27.0-35.0); Mean Corpuscular Volume 96.5 fL (81-100)
[2016-09-29] MEDS ORDERED: KCl 40 mEq/D5W 500 mL 40 MEQ in IV Premix 1 EACH IV ONE (06:45)
[2016-09-29] MEDS: Multivit-Miner-Folic Acid-Iron Tablet PO SCH (07:50)
[2016-09-29] MEDS: Lactulose 20 Gm/30 mL 30 mL Syrup PO SCH ×2 (07:56→19:55)
[2016-09-29] MEDS: Diltiazem Inj 125 MG in 0.9% Sodium Chloride 100 ML, Pharmacy To Mix 1 EA IV SCH (15:30)
--- NOTE | 2016-09-29 17:27 | PCM.PNMED ---
Subjective Date of Service Sep 29, 2016 Subjective Garret Castellon is a 51-year-old gentleman with alcohol use disorder now in withdrawal, seizure disorder, psychotic disorder, obesity, and dyslipidemia who was admitted on 09/23/2016 in active alcohol withdrawal. Found to be in atrial fibrillation with rapid ventricular response. Patient alert and appears oriented, endorses memory loss surrounding the last few days. He continues to slur his words but this is significantly improved from yesterday and patient states at baseline for him since his traumatic brain injury. He reports perioral numbness and tingling but also states this is at baseline. He denies chest pain, shortness of breath, headache, dizziness, abdominal pain, nausea, vomiting, diarrhea or constipation. No acute events overnight. Per nursing, patient in atrial fibrillation with heart rate 110s-130s increasing into the 200s with activity, received 5mg IV push of Metoprolol. Heart rate decreased initially into the low 100s but jumped up to the 140s-170s and patient was given another 5mg push of Metoprolol. Exam Vital Signs Vital Sign - Last Date Time Temp Pulse Resp B/P Pulse Ox O2 Delivery O2 Flow Rate FiO2 09/29/16 08:05 Supplement Oxygen 09/29/16 07:35 36.4 140 18 107/65 92 09/28/16 11:46 4.00 Intake and Output 09/28/16 09/28/16 09/29/16 Cumulative From/Thru 15:00 23:00 07:00 09/23/16 10:30 - 09/29/16 05:33 Intake Total 1452 ml 1020 ml 76297 ml Output Total 950 ml 700 ml 12767 ml Balance 502 ml 320 ml 8280 ml Intake Oral 400 ml 1020 ml 5872 ml IV Total 1052 ml 10607 ml Output Urine Total 950 ml 700 ml 48184 ml # Voids 6 2 25 # Bowel Movements 1 4 9 Exam General: Well-developed, obese male, lying in bed. Alert and oriented. Appropriately interactive. HEENT: Normocephalic, atraumatic. Anicteric sclerae, moist conjunctivae, and no lid lag. Oropharynx normal, mucosa moist. Neck: Supple, non-tender, No jugular venous distension. No lymphadenopathy Cardiovascular: Irregularly irregular, no murmurs, rubs, or gallops appreciated Pulmonary: Clear to auscultation bilaterally with no crackles, wheezes, or rhonchi. Normal respiratory effort. Abdomen: Bowel tones present. Soft, nontender, distended. No hepatosplenomegaly or masses appreciated. Extremities: No clubbing, cyanosis, or edema Skin: Normal temperature, turgor, and texture; no rash, perioral erythema and dry, scaly patches Neurological: Alert and oriented, confusion surrounding events in the last few days. No focal neurologic deficit. Psychiatric: Mood and affect normal. Communicating effectively. IVs and Medications Medications Reviewed: Medications were reviewed in detail Lab and Diagnostics White Blood Count 14.4, Red Blood Count 4.85, Hemoglobin 15.6, Hematocrit 46.8, Mean Corpuscular Volume 96.5, Mean Corpuscular Hemoglobin 32.2, Mean Corpuscular Hemoglobin Concent 33.3, Red Cell Distribution Width 14.2, Platelet Count 284, Sodium Level 144, Potassium Level 3.1, Chloride Level 102, Carbon Dioxide Level 23, Blood Urea Nitrogen 4, Creatinine 0.71, Estimat Glomerular Filtration Rate 124, Glucose Level 89, Calcium Level 9.5, Total Bilirubin 0.9, Aspartate Amino Transf (AST/SGOT) 93, Alanine Aminotransferase (ALT/SGPT) 60, Alkaline Phosphatase 191, Total Protein 7.4, Albumin 3.4 Ammonia 108 Result Diagram: 09/29/1655409/29/16554 Microbiology Respiratory viral panel negative. MRSA screen negative. X-Rays, CTs and MRIs X-RAY CHEST ONE VIEW, PORTABLE IMPRESSION: Interstitial prominence and cardiomegaly suggesting congestive failure. Dictated and approved by: Mikala Bagley M.D. on 09/25/2016 at 8:20 X-RAY CHEST ONE VIEW, PORTABLE IMPRESSION: No acute cardiopulmonary abnormality Dictated and approved by: Guy Whitman M.D. on 09/23/2016 at 11:44 . Assessment & Plan Garret Castellon is a 51-year-old gentleman with alcohol use disorder now in withdrawal, seizure disorder, psychotic disorder, obesity, and dyslipidemia who was admitted on 09/23/2016 in active alcohol withdrawal. Patient has since been difficult to manage on dexmedetomidine, diazepam, and phenobarbital.Hospital day #7 1. Atrial fibrillation with RVR, unknown chronicity. Present on admission. - Initially controlled with oral metoprolol and as needed intravenous metoprolol. - Heart rate 140s-170s and 200 with activity. Patient reports a history of tachycardia, endorses heart rate of 100-200. - Stop oral metoprolol and start Diltiazem drip - Continue with subcutaneous enoxaparin, initiate bridge to warfarin. - Echocardiogram ordered 09/24, still pending as of this afternoon. Spoke with [place], patient refused at that time. - Reordered echocardiogram, planned for tomorrow morning. 2. Alcohol use disorder in active withdrawal, present on admission. Improving - Continue chlordiazepoxide as needed, will start to taper. Per [facility] protocol. - Continue thiamine replacement 3. Seizure disorder, chronic. Appears stable. - Likely secondary to previous traumatic brain injury or prior history of withdrawal - Continue divalproex - Monitor closely for new seizure activity 4. Tobacco use disorder, present on admission. Active. - Continue nicotine replacement therapy 5. Dyslipidemia, chronic. Active. - Continue atorvastatin 6. Uncharacterized psychiatric disorder, presumed chronic. Under therapy. - Continue olanzapine 7. Hypokalemia/hypomagnesemia. Active - Replacement protocol as needed 8. Elevated serum glucose, present on admission, unknown chronicity. - HbA1c 6.3 (09/23/16) - Bedside glucose monitoring as diet advances - Low-dose correctional insulin, per protocol. 9. Chronic conditions, present on admission. Resume home medications. - Traumatic brain injury/mental health- depakote - Psychotic disorder- olanzapine Disposition: Anticipate discharge in 1-2 days, pending heart rate control, echocardiogram results and resolution of alcohol withdrawal. . Pain Evaluation: Adequate Pain Control VTE Prophylaxis: Sub-Q Enoxaparin Resuscitation Status: CPR: Attempt Resuscitation Attending Statement The patient was seen and examined together with Dr. Clark on 09/29/2016 and I agree with the history, exam and plan as outlined in the note above. . Danae Clark DO Sep 29, 2016 10:18 Broderick He MD Sep 30, 2016 17:50
--- NOTE | 2016-09-29 17:53 | NUR ---
Afib RVR/Sitter/A&O Cardiac: Pt denies CP. Tele: afib 110-130, up to 180-200 with activity. Po metoprolol given and K+ rider infused over 4 hours this AM. PRN IV metoprolol given at noon for elevated HR. Pt tolerated well, but HR only depressed [address] Eduardo mcintyre and Diltiazem gtt ordered. At end of shift, rate remains unchanged. Resp: Pt denies SOB, SpO2 low 90's on RA. Pickle at bedside, pt encouraged to use. GI/: Denies N/V, takes pills with sauce, tolerating PO intake. Diet upgraded to soft thins. Pt has had multiple BMs today. Neuro: A&Ox2 self only. pt reoriented and able to retain reorientation 20 min later. A&Ox3 with minor prompts from nurse this evening. Pt reports his lips are numb following TBI and this makes his speech slurred. Pt much more awake and responsive this shift. Sitter at bedside for safety and line preservation r/t pt impulsivity.
[2016-09-29] MEDS: Divalproex (QD) 500 mg ER24 Tablet PO SCH (20:06)
[2016-09-30] VITALS (8 sets, daily range): BP systolic 102–132; BP diastolic 61–91; PULSE 99–168; RESP 19–24; O2SAT 91–97
[2016-09-30] MEDS ORDERED: KCl 40 mEq/D5W 500 mL 40 MEQ in IV Premix 1 EACH IV ONE (02:15)
[2016-09-30] MEDS: Diltiazem Inj 125 MG in 0.9% Sodium Chloride 100 ML, Pharmacy To Mix 1 EA IV SCH ×2 (02:26→09:18)
[2016-09-30 03:16] LABS: BASOPHILS % (AUTO) 0.4 % (0-3); EOSINOPHILS % (AUTO) 1.2 % (0-5); MONOCYTES % (AUTO) 14.5 % (4-12); Mean Corpuscular Hemoglobin 31.9 pg (27.0-35.0); Mean Corpuscular Volume 97.3 fL (81-100); NEUTROPHILS % (AUTO) 71.4 % (40-74); Platelet Count 270 bil/L (150-400)
[2016-09-30 03:56] LABS: Magnesium 1.6 mg/dL (1.6-2.6)
--- NOTE | 2016-09-30 06:17 | NUR ---
Mentation/Cardiac Pt mentation continues to improve, pt A&Ox3 at times, with some forgetfulness, pt remains impulsive and will not use call light, and tries to get out of bed without help and pt is unsteady on feet and HR increases with any activity into the 200's at times. Sitter at bedside for safety. Pt is currently on Cardizem gtt at 15 mL/hr, when pt is sleeping HR is Afib 110's to 115's and BP's stable. When pt is awake and active HR increases to 120's to 140's at times with VSS.
[2016-09-30] MEDS ORDERED: Magnesium Sulf 2 Gm/50mL Water 2 GM in IV Premix 1 EACH IV ONE (06:40)
[2016-09-30] MEDS: Lactulose 20 Gm/30 mL 30 mL Syrup PO SCH ×2 (08:30→20:33)
[2016-09-30] MEDS: Multivit-Miner-Folic Acid-Iron Tablet PO SCH (09:09)
[2016-09-30] MEDS: MeTOProlol XL 50 mg ER24 Tablet PO SCH ×3 (12:18→23:14)
--- NOTE | 2016-09-30 13:03 | DRSVH ---
Formerly [facility] [address] [place] [address] Echocardiogram Report Name: KINGSTON FLETCHER RStudy Date: 12/01/2015 Height: 65 in Hospital Exam Location: [facility] Weight: 213 lb Gender: Male BSA: 2.0 m2 : 1965 Age: 51 yrs BP: 119/75 mmHg Reason For Study: Atrial fibrillation Ordering Physician: Performed By: Serene [facility] Interpretation Summary The study quality was technically difficult. The left ventricle is normal in size. The left ventricle is hyperdynamic. The ejection fraction is estimated to be 75-80%. Borderline right ventricular enlargement. The right ventricular systolic function is normal. There is trace tricuspid regurgitation. The right ventricular systolic pressure is estimated at 32 mmHg assuming a right atrial pressure of 8 mm Hg. Procedure: A two-dimensional transthoracic echocardiogram with color flow and Doppler was performed. The study quality was technically difficult. There is no prior echocardiogram noted for this patient. The patient was in atrial fibrillation with heart rates between 97-119 bpm during the exam. Left Ventricle: The left ventricle is normal in size. The ejection fraction is estimated to be 75-80%. The left ventricle is hyperdynamic. There are no obvious focal wall motion abnormalities noted but poor endocardial definition reduces the sensitivity for the detection of such. Diastolic function could not be accurately assessed due to atrial fibrillation. Right Ventricle: Borderline right ventricular enlargement. The right ventricular systolic function is normal. Atria: The left atrium grossly appears normal in size. The right atrium grossly appears normal in size. The interatrial septum is intact with no evidence for an atrial septal defect. Mitral Valve: The mitral valve is normal in structure and function. There is no mitral regurgitation noted. Aortic Valve: The aortic valve opens well. The aortic valve is trileaflet. There is no aortic valve stenosis. No aortic regurgitation is present. Tricuspid Valve: The tricuspid valve leaflets are thin and pliable. There is trace tricuspid regurgitation. The right ventricular systolic pressure is estimated at 32 mmHg assuming a right atrial pressure of 8 mm Hg. Pulmonic Valve: The pulmonic valve is not well visualized. There is no pulmonic valvular regurgitation. Great Vessels: The aortic root is normal size. The dimensions of the ascending aorta are normal. The IVC is of normal diameter and collapses less than 50% with a sniff. This suggests a right atrial pressure of 8 mm Hg. Pericardium/ Pleura There is no pericardial effusion. There is no pleural effusion. MMode/2D Measurements & Calculations LVIDd: 4.6 cm LA dimension AoV Openin.1 cm LV sullivan. diameter/BSA LVIDs: 2.3 cm Ao root diam: 3.0 cm(cm/m^2): 2.3 FS: 50.3 % IVC diam Aortic Jxn: 2.7 cm EPSS: 0.43 cm : 1.9 cm asc Aorta Diam IVSd: 0.95 cm LVPWd: 0.91 cm Ao Arch Diam (Proximal trans.) LV sys. diameter/BSA (cm/m^2): 1.1 Doppler Measurements & Calculations Ao V2 max MV P1/2t TR max kannan MV V2 mean : 155.4 cm/sec : 74.1 msec : 243.6 cm/sec : 47.1 cm/sec Ao max P.7 mmHg TR max PG MV mean PG Ao mean P.2 mmHg : 23.7 mmHg PA V2 max MV V2 VTI : 123.2 cm/sec : 14.6 cm PA mean PG PA Accel Time MV P1/2t max kannan Ao V2 mean PA V2 mean : 106.7 cm/sec : 75.8 cm/sec Ao V2 VTI: 23.7 cm MVA(P1/2t): 3.0 cm2 Reading Physician:UZMA
--- NOTE | 2016-09-30 13:46 | NUR ---
NUTRITION ASSESSMENT: ASSESS: Pt is a 51yo M admitted for alcohol withdrawal. Pt is on a soft diet and had been tolerating well at 100% most meals. Mentation continues to improve. CIWA ~2. PMHX: TBI, Dyslipidemia, elevated LFTs, ETOH, mood disorders LABS: Reviewed. Na 145, K 2.9, Bun 4, Division Toll Wire Chief .63, Glu 126, AST 77, ALT 56, Alk phos 184, alb 3.0 MEDS: Reviewed. GI: BMx5 09/29 SKIN: Fan 19 CURRENT WTS: 96.5kg, BMI 35.4kg, admit wt 99.7kg, IBW 61.5kg DIET: soft, PO 100% EST. NEEDS: Kcals: 1920-2112kcal/day (20-22kcal/kg) Pro: 75-90g/day (1.2-1.5g/kg IBW) NUTRITION DIAGNOSIS: 1.) No nutrition diagnosis at this time NUTRITION INTERVENTION: 1.) Continue current diet and encourage PO intake MONITOR / EVAL: PO, wt, labs, GI, POC, nutrition status. Will continue to monitor per low nutrition risk guidelines
[2016-09-30] MEDS ORDERED: MeTOProlol XL 50 mg ER24 Tablet PO SCH (14:30)
--- NOTE | 2016-09-30 15:27 | PCM.PNMED ---
Subjective Date of Service Sep 30, 2016 Subjective Garret Castellon is a 51-year-old gentleman with alcohol use disorder now in withdrawal, seizure disorder, psychotic disorder, obesity, and dyslipidemia who was admitted on 09/23/2016 in active alcohol withdrawal. Found to be in atrial fibrillation with rapid ventricular response. Patient's mental status continues to improve. Difficult to assess because baseline is unknown but patient is alert and oriented. He states that his heart rate has always been fast and denies chest pain, palpitations or shortness of breath. He reports a headache which is chronic and at baseline. Otherwise he is states he is feeling well. No acute events overnight. Per nursing, patient remains asymptomatic in Afib with RVR. Heart rate 110-130 and up to 180-200 with activity, started on Diltiazem drip. Exam Vital Signs Vital Sign - Last Date Time Temp Pulse Resp B/P Pulse Ox O2 Delivery O2 Flow Rate FiO2 09/30/16 04:56 168 09/30/16 04:34 36.7 24 119/75 93 Nasal Cannula 2.00 Intake and Output 09/29/16 09/29/16 09/30/16 Cumulative From/Thru 15:00 23:00 07:00 09/23/16 10:30 - 09/29/16 20:09 Intake Total 1942 ml 39984 ml Output Total 1225 ml 18260 ml Balance 717 ml 8997 ml Intake Oral 1400 ml 7272 ml IV Total 542 ml 60389 ml Output Urine Total 875 ml 27677 ml Stool Total 350 ml 350 ml # Voids 3 28 # Bowel Movements 4 13 Exam General: Well-developed, obese male,sitting up in bed brushing his teeth. Alert and oriented. Appropriately interactive. HEENT: Normocephalic, atraumatic. Anicteric sclerae, moist conjunctivae, and no lid lag. Oropharynx normal, mucosa moist. Neck: Supple, non-tender, No jugular venous distension. No lymphadenopathy Cardiovascular: Irregularly irregular, no murmurs, rubs, or gallops appreciated Pulmonary: Grossly clear to auscultation bilaterally with slight crackling heard in lung bases, no wheezes, or rhonchi. Normal respiratory effort. Abdomen: Bowel tones present. Soft, nontender, distended. No hepatosplenomegaly or masses appreciated. Extremities: No clubbing, cyanosis, or edema Skin: Normal temperature, turgor, and texture; no rash, perioral erythema and dry, scaly patches Neurological: Alert and oriented, confusion surrounding events in the last few days. No focal neurologic deficit. Psychiatric: Mood and affect normal. Communicating effectively. IVs and Medications Medications Reviewed: Medications were reviewed in detail Lab and Diagnostics White Blood Count 13.1, Red Blood Count 4.74, Hemoglobin 15.1, Hematocrit 46.1, Mean Corpuscular Volume 97.3, Mean Corpuscular Hemoglobin 31.9, Mean Corpuscular Hemoglobin Concent 32.8, Red Cell Distribution Width 14.6, Platelet Count 270, Neutrophils (%) (Auto) 71.4, Lymphocytes (%) (Auto) 12.3, Monocytes ( %) (Auto) 14.5, Eosinophils (%) (Auto) 1.2, Basophils (%) (Auto) 0.4 Sodium Level 145, Potassium Level 2.9, Chloride Level 105, Carbon Dioxide Level 26, Blood Urea Nitrogen 4, Creatinine 0.63, Estimat Glomerular Filtration Rate 143, Glucose Level 126, Calcium Level 9.4, Magnesium Level 1.6, Total Bilirubin 0.6, Aspartate Amino Transf (AST/SGOT) 77, Alanine Aminotransferase (ALT/SGPT) 56, Alkaline Phosphatase 184, Total Protein 7.5, Albumin 3.0 Result Diagram: 09/30/16 0250 09/30/16 0250 Microbiology Respiratory viral panel negative. MRSA screen negative. X-Rays, CTs and MRIs X-RAY CHEST ONE VIEW, PORTABLE IMPRESSION: Interstitial prominence and cardiomegaly suggesting congestive failure. Dictated and approved by: Mikala Bagley M.D. on 09/25/2016 at 8:20 X-RAY CHEST ONE VIEW, PORTABLE IMPRESSION: No acute cardiopulmonary abnormality Dictated and approved by: Guy Whitman M.D. on 09/23/2016 at 11:44 . Cardiac Echo Impressions Echocardiogram Report (09/30/16) Interpretation Summary The study quality was technically difficult. The left ventricle is normal in size. The left ventricle is hyperdynamic. The ejection fraction is estimated to be 75-80%. Borderline right ventricular enlargement. The right ventricular systolic function is normal. There is trace tricuspid regurgitation. The right ventricular systolic pressure is estimated at 32 mmHg assuming a right atrial pressure of 8 mm Hg. Assessment & Plan Garret Castellon is a 51-year-old gentleman with alcohol use disorder now in withdrawal, seizure disorder, psychotic disorder, obesity, and dyslipidemia who was admitted on 09/23/2016 in active alcohol withdrawal. Patient has since been difficult to manage on dexmedetomidine, diazepam, and phenobarbital. 1. Atrial fibrillation with RVR, unknown chronicity. Present on admission. - Initially controlled with oral metoprolol and as needed intravenous metoprolol. - Patient continued to have elevated heart rate 140s-180s overnight, despite Diltiazem drip. - Start oral metoprolol succinate 50mg q6h for rate control - Continue with subcutaneous enoxaparin, initiate bridge to warfarin. - Echocardiogram showed a hyperdynamic left ventricle with an EF of 75-80%. 2. Alcohol use disorder in active withdrawal, present on admission. Resolved - Continue chlordiazepoxide taper - Continue thiamine replacement 3. Seizure disorder, chronic. Appears stable. - Likely secondary to previous traumatic brain injury or prior history of withdrawal - Continue divalproex - Monitor closely for new seizure activity 4. Tobacco use disorder, present on admission. Active. - Continue nicotine replacement therapy 5. Dyslipidemia, chronic. Active. - Continue atorvastatin 6. Uncharacterized psychiatric disorder, presumed chronic. Under therapy. - Continue olanzapine 7. Hypokalemia/hypomagnesemia. Active - Replacement protocol as needed 8. Elevated serum glucose, present on admission, unknown chronicity. - HbA1c 6.3 (09/23/16) - Bedside glucose monitoring as diet advances - Low-dose correctional insulin, per protocol. 9. Chronic conditions, present on admission. Resume home medications. - Traumatic brain injury/mental health- depakote - Psychotic disorder- olanzapine Disposition: Anticipate discharge in 1-2 days, pending heart rate control. Pain Evaluation: Adequate Pain Control VTE Prophylaxis: Sub-Q Enoxaparin Resuscitation Status: CPR: Attempt Resuscitation Attending Statement The patient was seen and examined together with Dr. Clark on 09/30/2016 and I agree with the history, exam and plan as outlined in the note above. . Danae Clark DO Sep 30, 2016 05:58 Broderick He MD Sep 30, 2016 17:51
--- NOTE | 2016-09-30 18:20 | NUR ---
Afib/lactulose/sitter Cardiac: Denies CP, Pt currently on Diltiazem gtt @ 15mg/HR Tele Afib 105-120's. HR up to 150s with activity. Echo performed this morning. Diltiazem DC'd and replaced with PO metoprolol this afternoon. Dilt tapered down for 3 hrs after first dose of metoprolol given. Tele down to afib 80s-100s. Resp: Denies SOB, SpO2 mid 90s on RA. GI/: Denies N/V, diet upgraded to soft thin. Pt did not have BM today. Ammonia down to 80. Lactulose held this AM for RVR after discussion with physician. Neuro: A&Ox3 at times, forgets location and time sometimes. pt mentation continues to be improved. Pt has bouts of anxiety and becomes obsessed about items that he thinks he lost here but that his mother confirms were never taken to the hospital to begin with. Sitter at bedside for safety.
[2016-09-30] MEDS: Divalproex (QD) 500 mg ER24 Tablet PO SCH (20:33)
[2016-10-01] VITALS (11 sets, daily range): BP systolic 108–131; BP diastolic 68–85; PULSE 91–152; RESP 18–21; O2SAT 88–98
[2016-10-01] MEDS: MeTOProlol XL 50 mg ER24 Tablet PO SCH ×2 (05:11→20:13)
--- NOTE | 2016-10-01 05:21 | NUR ---
Telemetry Pt on MP30 in room, Q6H metoprolol medication regimen in place; tele afib 90s throughout shift with occasional increases to 100s. Pt resting throughout shift, no c/o pain or dyspnea. Sitter at bedside for impulsivity and agitation. VSS. AOx2.
[2016-10-01] MEDS: Lactulose 20 Gm/30 mL 30 mL Syrup PO SCH ×3 (08:39→20:15)
[2016-10-01] MEDS: Multivit-Miner-Folic Acid-Iron Tablet PO SCH (08:39)
[2016-10-01] MEDS ORDERED: MeTOProlol XL 50 mg ER24 Tablet PO ONE ×2 (11:25→15:40)
[2016-10-01] MEDS: chlordiazePOXIDE 25 mg Capsule PO SCH ×2 (12:40→17:54)
--- NOTE | 2016-10-01 14:16 | PCM.PNMED ---
Subjective Date of Service Oct 01, 2016 Subjective Garret Castellon is a 51-year-old gentleman with alcohol use disorder now in withdrawal, seizure disorder, psychotic disorder, obesity, and dyslipidemia who was admitted on 09/23/2016 in active alcohol withdrawal. Found to be in atrial fibrillation with rapid ventricular response. Patient's mental status has been improving in the last couple of days, this morning he is slightly more confused than yesterday but did just wake up. He is alert and oriented x2. Very difficult to understand this morning due to patient' s slurring. He denies pain, shortness of breath, nausea, vomiting and endorses headaches which are chronic and appear at baseline. No acute events overnight. Per nursing, atrial fibrillation on telemetry with heart in the 90s-100s. Sitter at bedside for impulsivity and agitation. Patient' s diet advanced yesterday to soft thin. Exam Vital Signs Vital Sign - Last Date Time Temp Pulse Resp B/P Pulse Ox O2 Delivery O2 Flow Rate FiO2 10/01/16 04:27 91 10/01/16 03:22 36.7 18 131/68 92 Room Air 09/30/16 08:30 1.00 Intake and Output 09/30/16 09/30/16 10/01/16 Cumulative From/Thru 15:00 23:00 07:00 09/23/16 10:30 - 10/01/16 06:06 Intake Total 618 ml 1160 ml 876 ml 33777 ml Output Total 800 ml 825 ml 21533 ml Balance 618 ml 360 ml 51 ml 9587 ml Intake Oral 900 ml 876 ml 9284 ml IV Total 618 ml 260 ml 30256 ml Output Urine Total 800 ml 825 ml 68772 ml Stool Total 350 ml # Voids 4 32 # Bowel Movements 1 0 14 Exam General: Well-developed, obese male,sleeping but wakes easily. very lethargic and oriented x2. Increase in slurring of words. HEENT: Normocephalic, atraumatic. Anicteric sclerae, moist conjunctivae, and no lid lag. Oropharynx normal, mucosa moist. Neck: Supple, non-tender, No jugular venous distension. Cardiovascular: Irregularly irregular, no murmurs, rubs, or gallops appreciated Pulmonary: Clear to auscultation bilaterally, no wheezes, or rhonchi. Normal respiratory effort. Abdomen: Bowel tones present. Soft, nontender, distended. No masses appreciated. Extremities: No clubbing, cyanosis, or edema Skin: Normal temperature, damp, perioral erythema and dry, scaly patches Neurological: Lethargic and orientedx2, No focal neurologic deficit. Psychiatric: Affect appears normal, somewhat agitated mood. IVs and Medications Medications Reviewed: Medications were reviewed in detail Lab and Diagnostics Sodium Level 144, Potassium Level 3.8, Chloride Level 103, Carbon Dioxide Level 29, Blood Urea Nitrogen 4, Creatinine 0.65, Estimat Glomerular Filtration Rate 138, Glucose Level 117, Calcium Level 9.5, Total Bilirubin 0.5, Aspartate Amino Transf (AST/SGOT) 87, Alanine Aminotransferase (ALT/SGPT) 59, Alkaline Phosphatase 177, Ammonia 111, Total Protein 7.2, Albumin 3.3 Result Diagram: 09/30/16 0250 10/01/16 0320 Microbiology Respiratory viral panel negative. MRSA screen negative. X-Rays, CTs and MRIs X-RAY CHEST ONE VIEW, PORTABLE IMPRESSION: Interstitial prominence and cardiomegaly suggesting congestive failure. Dictated and approved by: Mikala Bagley M.D. on 09/25/2016 at 8:20 X-RAY CHEST ONE VIEW, PORTABLE IMPRESSION: No acute cardiopulmonary abnormality Dictated and approved by: Guy Whitman M.D. on 09/23/2016 at 11:44 . Cardiac Echo Impressions Echocardiogram Report (09/30/16) Interpretation Summary The study quality was technically difficult. The left ventricle is normal in size. The left ventricle is hyperdynamic. The ejection fraction is estimated to be 75-80%. Borderline right ventricular enlargement. The right ventricular systolic function is normal. There is trace tricuspid regurgitation. The right ventricular systolic pressure is estimated at 32 mmHg assuming a right atrial pressure of 8 mm Hg. Assessment & Plan Garret Castellon is a 51-year-old gentleman with alcohol use disorder, seizure disorder, psychotic disorder, obesity, and dyslipidemia who was admitted on in active alcohol withdrawal. Patient has since been difficult to manage on dexmedetomidine, diazepam, and phenobarbital. 1. Atrial fibrillation with RVR, unknown chronicity. Present on admission. Active - Difficulty controlling heart rate with metoprolol and diltiazem. - Started metoprolol succinate q6h on 09/30 with adequate response - Continue rate control with metoprolol succinate, change to 100mg twice daily. - Echocardiogram as above - Continue Rivaroxaban for anticoagulation 2. Heart failure with preserved EF, unknown chronicity. Present on admission. Active. - Echo (09/30) showed a hyperdynamic left ventricle with an EF of 75-80%, consistent with diastolic CHF - Chest xray showing signs of fluid overload and patient clinically hypervolemic - Start oral furosemide, 40mg daily. 3. Alcohol use disorder in active withdrawal, present on admission. Improving. - Presumed to be resolved, patient more confused and agitated this morning. - Continue chlordiazepoxide taper, thiamine replacement and lactulose - Work on obtaining outpatient psychiatric records 4. Seizure disorder, chronic. Appears stable. - Likely secondary to previous traumatic brain injury or prior history of withdrawal - No evidence for seizure activity, will continue to monitor closely - Continue divalproex 5. Tobacco use disorder, present on admission. Active. - Continue nicotine replacement therapy 6. Dyslipidemia, chronic. Active. - Continue atorvastatin 7. Uncharacterized psychiatric disorder, presumed chronic. Under therapy. - Continue olanzapine 8. Hypokalemia/hypomagnesemia. Active - Replacement protocol as needed 9. Elevated serum glucose, present on admission, unknown chronicity. - HbA1c 6.3 (09/23/16) - Bedside glucose monitoring as diet advances - Low-dose correctional insulin, per protocol. 10. Chronic conditions, present on admission. Resume home medications. - Traumatic brain injury/mental health- depakote - Psychotic disorder- olanzapine Acetaminophen-fever/headache/mild/moderate pain Antiemetics, as needed Bowel regimen, as needed Disposition: Anticipate discharge in 1-2 days, pending improvement in mental status and heart rate control. Pain Evaluation: Adequate Pain Control VTE Prophylaxis: Sub-Q Enoxaparin Resuscitation Status: CPR: Attempt Resuscitation Attending Statement The patient was seen and examined together with Dr. Clark on 10/01/2016 and I agree with the history, exam and plan as outlined in the note above. . Danae Clark DO Oct 01, 2016 08:27 Broderick He MD Oct 01, 2016 14:21
[2016-10-01] MEDS ORDERED: MeTOProlol 1 mg/mL 5 mL Inj IVPUSH SCH (15:35)
--- NOTE | 2016-10-01 17:07 | NUR ---
Heart rate/sitter Patient has been in Afib with a rate in the 10ss-160s. Patients baseline has been trending up to the 110s with sikes in ace 150s-160s with activity. Patient remains asymptomatic, patient denies and pain/ discomfort. All other VSS. Patient resting in bed, sitter at bedside for confusion.
--- NOTE | 2016-10-01 17:47 | NUR ---
Social Work: Continued Discharge Planning D: Pt discussed in morning rounds. Pt is confused, trying to get OOB and leave to "clean my apartment." Pt on a 1:1. Pt did work with PT today who is currently recommending SNF at discharge for progression of safe functional mobility. Pt ambulated 60 feet with FWW and min assistance. Pt likely not to meet skillable need for SNF based on note. SLAB INSTALLER attempted to meet with pt for CD assessment however pt is not appropriate at this time. SLAB INSTALLER is concerned about pt's mentation/confusion as it poses possible barrier for discharge. t/c to pt's mother Elva Castellon. No answer. Left message requesting return phone call to discuss pt's options for discharge. A: Pt who previously lived in an apartment in [place]. P: SLAB INSTALLER to continue to attempt CD assessment and follow up with pt's mother about discharge plan. NORA Schneider
[2016-10-01] MEDS: Divalproex (QD) 500 mg ER24 Tablet PO SCH (20:14)
[2016-10-02] VITALS (9 sets, daily range): BP systolic 95–123; BP diastolic 60–78; PULSE 90–151; RESP 16–20; O2SAT 94–100
[2016-10-02] MEDS: chlordiazePOXIDE 25 mg Capsule PO SCH ×4 (00:55→17:39)
[2016-10-02 03:47] LABS: Mean Corpuscular Hemoglobin 31.9 pg (27.0-35.0); Mean Corpuscular Volume 97.9 fL (81-100)
[2016-10-02 03:48] LABS: BASOPHILS % (AUTO) 0.3 % (0-3); EOSINOPHILS % (AUTO) 1.8 % (0-5); MONOCYTES % (AUTO) 9.5 % (4-12); Platelet Count 367 bil/L (150-400)
[2016-10-02] MEDS: Multivit-Miner-Folic Acid-Iron Tablet PO SCH (07:50)
[2016-10-02] MEDS: MeTOProlol XL 50 mg ER24 Tablet PO SCH ×2 (07:51→19:56)
[2016-10-02] MEDS: Lactulose 20 Gm/30 mL 30 mL Syrup PO SCH ×4 (07:51→20:03)
--- NOTE | 2016-10-02 12:14 | NUR ---
Social Work: Continued Discharge Planning D: Pt discussed in morning rounds. Pt is not medically stable for discharge but anticipated to discharge tomorrow pending safe discharge plan from case management. wait staff alerted SUPERVISOR BRAIDING that pt's mother and family were present at bedside. SUPERVISOR BRAIDING met with the pt's mother, Elva Castellon ([phone]) and pt at bedside. Pt is alert and oriented, speech is slow and slightly slurred but understandable. Pt with some confusion about dates and current situation but mother states that this is baseline for pt. The pt states that he lives in a trailer in [facility] where he drinks 3 24 oz cans of "[employer] [place]" beer. Pt states that he is currently engaged in weekly counseling at [facility] as an outpatient and has a [place] Medical Staff Assistant named Jv. Pt cannot recall CM last name. Mother confirms this to be true. Pt has engaged in multiple [place] sponsored [facility] treatment programs in the past. Prior to admission, pt had been living on his own, used public transportation and has been I. Pt gives mixed reports about his willingness to enter inpatient treatment for ETOH. SUPERVISOR BRAIDING expressed concern for pt to discharge back to his home in [place] without additional support. Pt's mother expressed similar concerns that the pt would just go back to drinking. Pt and mother agree that pt will go stay with her in [place] until pt can be seen by his CM Jv where they can discuss treatment options and additional support for the pt. Pt ambulated 400 feet with physical therapy, and while he has some safety concerns related to his memory and mentation, pt is not a candidate for skilled rehab at this time. A: Pt who is physically I at baseline P: Pt to discharge home with his mother in [place]; Mother to assist pt getting an appointment with his CM for possible inpatient treatment. SUPERVISOR BRAIDING to continue to follow and assist during pt's discharge. NORA Schneider
--- NOTE | 2016-10-02 13:29 | PCM.PNMED ---
Subjective Date of Service Oct 02, 2016 Subjective Garret Castellon is a 51-year-old gentleman with alcohol use disorder now in withdrawal, seizure disorder, psychotic disorder, obesity, and dyslipidemia who was admitted on 09/23/2016 in active alcohol withdrawal. Found to be in atrial fibrillation with rapid ventricular response. Patient's mental status is apparently at baseline per his mother. He appears lethargic and confused but is communicating appropriately. He is alert and oriented to person and time but only somewhat to place. He denies pain, shortness of breath, nausea, abdominal pain or vomiting and endorses headaches which are chronic and appear at baseline. No acute events overnight. Per nursing, patient in atrial fibrillation with a rate in the 100s-160s; remains asymptomatic. Exam Vital Signs Vital Sign - Last Date Time Temp Pulse Resp B/P Pulse Ox O2 Delivery O2 Flow Rate FiO2 10/02/16 09:54 Supplement Oxygen 10/02/16 09:15 105 10/02/16 07:46 36.3 123/68 94 10/02/16 04:05 16 5.00 Intake and Output 10/01/16 10/01/16 10/02/16 Cumulative From/Thru 15:00 23:00 07:00 09/23/16 10:30 - 10/02/16 06:04 Intake Total 997 ml 900 ml 92028 ml Output Total 600 ml 1100 ml 66535 ml Balance 397 ml -200 ml 9784 ml Intake Oral 997 ml 900 ml 95563 ml IV Total 23329 ml Output Urine Total 600 ml 800 ml 27513 ml Stool Total 350 ml Urine/Stool Mix 300 ml 300 ml # Voids 4 3 39 # Bowel Movements 3 1 18 Exam General: Well-developed, obese male, sleeping but wakes easily. Lethargic and oriented x2. HEENT: Normocephalic, atraumatic. Anicteric sclerae. Oropharynx normal, mucosa moist. Neck: Supple, non-tender, No jugular venous distension. Cardiovascular: Irregularly irregular, tachycardic, no murmurs, rubs, or gallops appreciated Pulmonary: Clear to auscultation bilaterally, no wheezes, or rhonchi. Normal respiratory effort. Abdomen: Bowel tones present. Soft, nontender, distended. No masses appreciated. Extremities: No clubbing, cyanosis, bilateral lower extremity edema Skin: Normal temperature, damp, perioral erythema and dry, scaly patches Neurological: Lethargic and orientedx2, No focal neurologic deficit. IVs and Medications Medications Reviewed: Medications were reviewed in detail Lab and Diagnostics White Blood Count 15.1, Red Blood Count 4.70, Hemoglobin 15.0, Hematocrit 46.0, Mean Corpuscular Volume 97.9, Mean Corpuscular Hemoglobin 31.9, Mean Corpuscular Hemoglobin Concent 32.6, Red Cell Distribution Width 14.4, Platelet Count 367, Neutrophils (%) (Auto) 73.0, Lymphocytes (%) (Auto) 14.6, Monocytes ( %) (Auto) 9.5, Eosinophils (%) (Auto) 1.8, Basophils (%) (Auto) 0.3 Sodium Level 144, Potassium Level 3.5, Chloride Level 103, Carbon Dioxide Level 27, Blood Urea Nitrogen 7, Creatinine 0.68, Estimat Glomerular Filtration Rate 131, Glucose Level 102, Calcium Level 9.4, Total Bilirubin 0.6, Aspartate Amino Transf (AST/SGOT) 88, Alanine Aminotransferase (ALT/SGPT) 68, Alkaline Phosphatase 158, Ammonia 88, Total Protein 7.1, Albumin 3.2 Triglycerides Level 150, Cholesterol Level 141, LDL Cholesterol, Calculated 81.000, VLDL Cholesterol 30.000, HDL Cholesterol 30, Cholesterol/HDL Ratio 4.70 Result Diagram: 10/02/1631310/02/16313 Microbiology Respiratory viral panel negative. MRSA screen negative. X-Rays, CTs and MRIs X-RAY CHEST ONE VIEW, PORTABLE IMPRESSION: Interstitial prominence and cardiomegaly suggesting congestive failure. Dictated and approved by: Mikala Bagley M.D. on 09/25/2016 at 8:20 X-RAY CHEST ONE VIEW, PORTABLE IMPRESSION: No acute cardiopulmonary abnormality Dictated and approved by: Guy Whitman M.D. on 09/23/2016 at 11:44 . Cardiac Echo Impressions Echocardiogram Report (09/30/16) Interpretation Summary The study quality was technically difficult. The left ventricle is normal in size. The left ventricle is hyperdynamic. The ejection fraction is estimated to be 75-80%. Borderline right ventricular enlargement. The right ventricular systolic function is normal. There is trace tricuspid regurgitation. The right ventricular systolic pressure is estimated at 32 mmHg assuming a right atrial pressure of 8 mm Hg. Assessment & Plan Garret Castellon is a 51-year-old gentleman with alcohol use disorder, seizure disorder, psychotic disorder, obesity, and dyslipidemia who was admitted on in active alcohol withdrawal. Patient has since been difficult to manage on dexmedetomidine, diazepam, and phenobarbital. 1. Atrial fibrillation with RVR, unknown chronicity. Present on admission. Active - Difficulty controlling heart rate with metoprolol and diltiazem. - Started metoprolol succinate q6h on 09/30 with adequate response - Continue rate control with metoprolol succinate, increase to 150mg twice daily. - Echocardiogram (09/30) showed a hyperdynamic left ventricle with an EF of 75- 80%, consistent with diastolic CHF - Continue Rivaroxaban for anticoagulation 2. Heart failure with preserved EF, unknown chronicity. Present on admission. Active. - Echo, as above - Chest xray showing signs of fluid overload and patient clinically hypervolemic - Start oral furosemide, 40mg daily. Pt still hypervolemic. Additional diuresis today, torsemide 40mg po. 3. Transaminitis, present on admission. Active - Patient presented in actively withdrawing form alcohol but LFTs elevation without improvement. - Abdominal ultrasound to assess liver for secondary cause, fatty infiltrates, cirrhosis - Hepatitis panel negative. 4. Alcohol use disorder in active withdrawal, present on admission. Improving. - Presumed to be resolved, patient remains lethargic but easily aroused. - Per his mother mental status is at baseline, pt with hx of traumatic brain injury - Continue chlordiazepoxide taper, thiamine replacement and lactulose - Work on obtaining outpatient psychiatric records 5. Seizure disorder, chronic. Appears stable. - Likely secondary to previous traumatic brain injury or prior history of withdrawal - No evidence for seizure activity, will continue to monitor closely - Continue divalproex 6. Tobacco use disorder, present on admission. Active. - Continue nicotine replacement therapy 7. Dyslipidemia, chronic. Active. - Continue atorvastatin 8. Uncharacterized psychiatric disorder, presumed chronic. Under therapy. - Continue olanzapine 9. Hypokalemia/hypomagnesemia. Active - Replacement protocol as needed 10. Elevated serum glucose, present on admission, unknown chronicity. - HbA1c 6.3 (09/23/16) - Bedside glucose monitoring as diet advances - Low-dose correctional insulin, per protocol. 11. Chronic conditions, present on admission. Resume home medications. - Traumatic brain injury/mental health- depakote - Psychotic disorder- olanzapine Acetaminophen-fever/headache/mild/moderate pain Antiemetics, as needed Bowel regimen, as needed Disposition: Anticipate discharge in 1-2 days, pending improvement in mental status and heart rate control. Per patient's mother he is currently living a trailer that is 'condemned' and can stay with her but only for a few days. May need help with placement. Pain Evaluation: Adequate Pain Control VTE Prophylaxis: Sub-Q Enoxaparin Resuscitation Status: CPR: Attempt Resuscitation Attending Statement The patient was seen and examined together with Dr. Clark on 10/02/2016 and I agree with the history, exam and plan as outlined in the note above. . Danae Clark DO Oct 02, 2016 13:29 Broderick He MD Oct 16, 2016 08:24
--- NOTE | 2016-10-02 16:47 | NUR ---
Mentation/Heart rate Patient A&Ox3 this AM with intermittent confusion. Patient became increasing confused and and disoriented throughout the day. He frequently gets out of bed and stating he is "going to class", "going to get the mail", etc. Patient easily reoriented. Patient continues to be in Afib with rates in the 110s-120s, up to the 160s-170s with activity. MD aware, metoprolol to be increased.
[2016-10-02] MEDS: Divalproex (QD) 500 mg ER24 Tablet PO SCH (19:56)
--- NOTE | 2016-10-02 20:00 | NUR ---
Mental status and O2 saturations Patient is A/Ox3 but is having a hard time finding his words and sometimes become disoriented. He has been trying to get up on day shift and when asked if he needs anything he is unable to recall what he needed to get up for. Per day shift RN the patients mother reports that he seems to be returning to baseline mentally. Patient is requiring some supplemental oxygen at night to maintain saturations. Patient is currently on 4LPM via an oxymask and saturating in the mid 90s. Patient reports feeling well and there are no external signs of distress. . Addendum: 10/03/16 at 0012 by ANITA ADKINS RN Patient has become slightly more confused. He has been holding the bleed pressure cuff and stating "can I have some scissors to cut this open, my watch is inside." The patient does not have a watch. Patient was settled back in bed and fall precautions remain in place.
[2016-10-02] MEDS ORDERED: MeTOProlol XL 50 mg ER24 Tablet PO SCH (20:30)
[2016-10-03] VITALS (9 sets, daily range): BP systolic 94–112; BP diastolic 61–73; PULSE 90–122; RESP 12–18; O2SAT 90–100
[2016-10-03] MEDS: chlordiazePOXIDE 25 mg Capsule PO SCH ×4 (00:28→17:23)
[2016-10-03 03:18] LABS: Mean Corpuscular Hemoglobin 31.8 pg (27.0-35.0); Mean Corpuscular Volume 97.5 fL (81-100)
[2016-10-03] MEDS: MeTOProlol XL 50 mg ER24 Tablet PO SCH ×2 (07:52→20:11)
[2016-10-03] MEDS: Lactulose 20 Gm/30 mL 30 mL Syrup PO SCH ×3 (07:53→19:06)
[2016-10-03] MEDS: Multivit-Miner-Folic Acid-Iron Tablet PO SCH (07:53)
--- NOTE | 2016-10-03 10:22 | DRSVH ---
PROCEDURE: US ABDOMEN ([id number]) INDICATIONS: TRANSAMINITIS TECHNIQUE: Real-time scanning was performed of the abdominal and retroperitoneal organs, with image documentatio n. COMPARISON: None. FINDINGS: Liver: Liver is normal in size and homogeneous in echotexture. Liver has a diffusely increased echot exture which typically represents fatty infiltration; however, finding is nonspecific and other etiol ogies including hepatic cirrhosis can have a similar appearance. Please correlate with clinical and l aboratory findings. Gallbladder: Gallbladder is sonographically normal. No gallstones. No gallbladder wall thickening. N o pericholecystic fluid. No sonographic Che sign. Biliary ducts: Intrahepatic bile ducts are non-dilated. Extrahepatic bile duct caliber measures 4.0 mm. Normal is 6-7 mm or less in diameter, or 10 mm or less post-cholecystectomy. Pancreas: Pancreas is not well-seen due to bowel gas and cannot be evaluated. Spleen: Spleen is normal in size and homogeneous in echotexture. Kidneys: Kidneys are normal in size and echotexture. Right kidney measures 12.7 cm long; left kidne y measures 9.9 cm long. No hydronephrosis or nephrolithiasis. No solid masses. Aorta: Visualized aorta is normal in caliber at less than 3 cm. Iliacs: Proximal common iliac arteries are normal in caliber at less than 2.5 cm. IVC: Intrahepatic inferior vena cava is patent. Miscellaneous: No free abdominal fluid. IMPRESSION: 1. Echogenic liver. Finding typically represents fatty infiltration; however, finding is nonspecific and correlation with clinical and laboratory findings is recommended to exclude other etiologies incl uding hepatic cirrhosis. 2. Nonvisualization the pancreas which cannot be evaluated. 3. Abdominal sonogram otherwise within normal limits. Dictated by: Corina Pulido MD, PhD on 10/03/2016 at 10:20 Approved by: Corina Pulido MD, PhD on 10/03/2016 at 10:20
--- NOTE | 2016-10-03 12:07 | DRSVH ---
PROCEDURE: X-RAY CHEST ONE VIEW ([id number]) INDICATIONS: dyspnea TECHNIQUE: One view of the chest was acquired. COMPARISON: [facility], CR, XR CHEST 1VW (PORTABLE), 09/25/2016, 7:34. FINDINGS: Surgical changes and devices: None. Lungs and pleura: No pleural effusions or pneumothorax. Mild perihilar opacification Compatible pulmonary edema. Mediastinum: Mediastinal contours appear normal. Heart size is normal. Bones and chest wall: No suspicious bony lesions. Overlying soft tissues appear unremarkable. IMPRESSION: Mild pulmonary edema possibly related to CHF. Please correlate with clinical data. Dictated by: Corina Pulido MD, PhD on 10/03/2016 at 12:05 Approved by: Corina Pulido MD, PhD on 10/03/2016 at 12:05
[2016-10-03 13:29] LABS: BASOPHILS % (AUTO) 0.6 % (0-3); EOSINOPHILS % (AUTO) 1.8 % (0-5); MONOCYTES % (AUTO) 8.6 % (4-12); NEUTROPHILS % (AUTO) 75.4 % (40-74)
--- NOTE | 2016-10-03 17:34 | NUR ---
Mentation Patient alert and oriented x3. Repeatedly tries to get out of bed stating he needs to leave. Easly reoriented and talked back into bed. Patient does not use call light, even with frequent reminders. Bed alarm is on and frequent checks in place.
--- NOTE | 2016-10-03 18:37 | NUR ---
Found [place] patients bed alarm going off, entered room and saw patient kneeling on floor near his tray table. I asked what happened and patient stated he got down on the floor because he wanted to look under the tray table. No s/sx of fall or injury. Patient able to stand up on his own without assistance, helped him back to bed, reminded patient to use call light for help when he would like to get up. Patient resting in bed, call light within reach and bed alarm is on.
--- NOTE | 2016-10-03 19:44 | PCM.PNMED ---
Subjective Date of Service Oct 03, 2016 Subjective Garret Castellon is a 51-year-old gentleman with alcohol use disorder with history of withdrawal, seizure disorder, psychotic disorder, obesity, and dyslipidemia who was admitted on 09/23/2016 in active alcohol withdrawal and found to be atrial fibrillation with rapid ventricular response. Hospital day # 11. Overnight: The patient was confused and was reoriented by the nursing staff. Telemetry overnight: Atrial fibrillation, heart rate controlled 90-100's, with RVR to 140 with activity, frequent PVC's. Patient's mental status is apparently at baseline per his mother. He appears lethargic and confused but is communicating appropriately. He is alert and oriented to person and time but only somewhat to place. He denies headache, chest pain, shortness of breath, abdominal pain, nausea, vomiting, fever, chills , dysuria, diarrhea or constipation. . Exam Vital Signs Vital Sign - Last Date Time Temp Pulse Resp B/P Pulse Ox O2 Delivery O2 Flow Rate FiO2 10/03/16 08:54 Supplement Oxygen 10/03/16 08:00 106 10/03/16 07:42 36.6 96/64 93 4.00 10/03/16 04:09 18 Intake and Output 10/02/16 10/02/16 10/03/16 Cumulative From/Thru 15:00 23:00 07:00 09/23/16 10:30 - 10/03/16 04:44 Intake Total 725 ml 720 ml 87981 ml Output Total 850 ml 650 ml 85351 ml Balance -125 ml 70 ml 9729 ml Intake Oral 725 ml 720 ml 64837 ml IV Total 83521 ml Output Urine Total 850 ml 650 ml 36045 ml Stool Total 350 ml Urine/Stool Mix 300 ml # Voids 3 42 # Bowel Movements 2 2 22 Exam General: Well-developed, obese male, sleeping but wakes easily. Lethargic and oriented x2. HEENT: Normocephalic, atraumatic. Anicteric sclerae. Oropharynx normal, mucosa moist. Neck: Supple, non-tender, No jugular venous distension. Cardiovascular: Irregularly irregular, tachycardic, no murmurs, rubs, or gallops appreciated Pulmonary: Clear to auscultation bilaterally, no wheezes, or rhonchi. Normal respiratory effort. Abdomen: Bowel tones present. Soft, nontender, distended. No masses appreciated. Extremities: No clubbing, cyanosis, bilateral lower extremity edema Skin: Normal temperature, damp, perioral erythema and dry, scaly patches Neurological: Lethargic and orientedx2, No focal neurologic deficit. . IVs and Medications Medications Reviewed: Medications were reviewed in detail Lab and Diagnostics Item Value Date Time Calcium Level 9.3 mg/dL 10/03/16 0300 Total Bilirubin 0.5 mg/dL 10/03/16 0300 Aspartate Amino Transf (AST/SGOT) 121 U/L H 10/03/16 0300 Alanine Aminotransferase (ALT/SGPT) 86 U/L H 10/03/16 0300 Alkaline Phosphatase 162 U/L H 10/03/16 0300 Ammonia 111 ug/dL H 10/03/16 0300 Total Protein 7.6 g/dL 10/03/16 0300 Albumin 3.4 g/dL 10/03/16 0300 Procalcitonin 0.20 ng/mL 10/03/16 0300 Result Diagram: 10/03/16 0300 10/03/16 0300 Microbiology Respiratory viral panel negative. MRSA screen negative. . X-Rays, CTs and MRIs X-RAY CHEST ONE VIEW, PORTABLE IMPRESSION: Interstitial prominence and cardiomegaly suggesting congestive failure. Dictated and approved by: Mikala Bagley M.D. on 09/25/2016 at 8:20 X-RAY CHEST ONE VIEW, PORTABLE IMPRESSION: Interstitial prominence and cardiomegaly suggesting congestive failure. Dictated by: Mikala Bagley M.D. on 09/25/2016 at 8:20 Approved by: Mikala Bagley M.D. on 09/25/2016 at 8:20 US ABDOMEN IMPRESSION: 1. Echogenic liver. Finding typically represents fatty infiltration; however, finding is nonspecific and correlation with clinical and laboratory findings is recommended to exclude other etiologies including hepatic cirrhosis. 2. Nonvisualization the pancreas which cannot be evaluated. 3. Abdominal sonogram otherwise within normal limits. Dictated by: Corina Pulido MD, PhD on 10/03/2016 at 10:20 Approved by: Corina Pulido MD, PhD on 10/03/2016 at 10:20 . Cardiac Echo Impressions Echocardiogram Interpretation Summary: The study quality was technically difficult. The left ventricle is normal in size. The left ventricle is hyperdynamic. The ejection fraction is estimated to be 75-80%. Borderline right ventricular enlargement. The right ventricular systolic function is normal. There is trace tricuspid regurgitation. The right ventricular systolic pressure is estimated at 32 mmHg assuming a right atrial pressure of 8 mm Hg. . Assessment & Plan Garret Castellon is a 51-year-old gentleman with alcohol use disorder with history of withdrawal, seizure disorder, psychotic disorder, obesity, and dyslipidemia who was admitted on 09/23/2016 for active alcohol withdrawal and found to be atrial fibrillation with rapid ventricular response. Hospital day # 11. 1. Atrial fibrillation with RVR, unknown chronicity. Present on admission. Active - Continue rate control with metoprolol succinate 150mg twice daily. - Echocardiogram (09/30) showed a hyperdynamic left ventricle with an EF of 75- 80%, consistent with diastolic CHF. - Continue Rivaroxaban for anticoagulation. 2. Heart failure with preserved EF, secondary to diastolic dysfunction, unknown acuity, present on admission. Active. - Echocardiogram, as above. - Continue torsemide 40 mg daily. - Patient required more oxygen over the course of the morning and is currently on 8 L of supplemental oxygen. Patient also has increasing leukocytosis. - Repeat chest x-ray, pending. 3. Transaminitis, present on admission. Active. - Patient presented actively withdrawing form alcohol but LFTs elevation without improvement. - Abdominal ultrasound reveals echogenic liver likely risk control field representative of nonalcoholic steatohepatitis versus cirrhosis. - Hepatitis panel negative. 4. Alcohol use disorder, underwent active withdrawal, present on admission. Resolved. - Presumed to be resolved, patient remains lethargic but easily aroused. - Per his mother mental status is at baseline and patient has a history of traumatic brain injury. - Continue chlordiazepoxide taper and thiamine replacement. - Ammonia elevated at 111. Continue lactulose 20 g 3 times a day titrated to 3 BMs per day. Added rifaximin 550 mg twice a day. - Work on obtaining outpatient psychiatric records. Chronic problems: Seizure disorder, chronic. Stable. - Likely secondary to previous traumatic brain injury or prior history of withdrawal - No evidence for seizure activity, will continue to monitor closely. - Continue Depakote 1000 mg daily at bedtime. Tobacco use disorder, present on admission. Active. - Continue nicotine replacement therapy. Dyslipidemia, chronic. Active. - Continue atorvastatin 40 mg daily at bedtime. Uncharacterized psychiatric disorder, presumed chronic. Under therapy. - Continue olanzapine 10 mg daily at bedtime. Hypokalemia/hypomagnesemia. Resolved. - Replacement protocol as needed. - Continue to monitor closely. Elevated serum glucose, present on admission, unknown chronicity. - HbA1c 6.3% (09/23/16) risk control field representative of prediabetes. - Bedside glucose monitoring as diet advances. - Low-dose correctional scale insulin as needed. Traumatic brain injury. Acetaminophen-fever/headache/mild/moderate pain Antiemetics, as needed Bowel regimen, as needed Disposition: Anticipate discharge in 1-2 days, pending improvement in mental status and heart rate control. Per patient's mother he is currently living a trailer that is 'condemned' and can stay with her but only for a few days. May need help with placement. . VTE Prophylaxis: Sub-Q Enoxaparin VTE Mechanical Devices: Intermittant Pneumatic CD Resuscitation Status: CPR: Attempt Resuscitation Attending Statement The patient was seen and examined together with Dr. Tan on 10-03-16 and I agree with the history, exam and plan as outlined in the note above. Aleksandra Tan DO Oct 03, 2016 11:08 Dyan Hannon MD Oct 04, 2016 16:56
[2016-10-03] MEDS: Divalproex (QD) 500 mg ER24 Tablet PO SCH (21:01)
[2016-10-04] MEDS: chlordiazePOXIDE 25 mg Capsule PO SCH ×3 (00:53→13:07)
--- NOTE | 2016-10-04 03:00 | NUR ---
Safety and mental status. Patient remained very confused this evening. Patient required routine reorientation and most the time it was unsuccessful. Patient was consistently trying to get out of bed 1 to 5 times for most of the evening. A sitter was requested for the patient but none were available. Fall precautions remain in place and close observation by staff was utilized to maintain safety. Patient is alert and oriented 2 and is having difficulty processing information.
[2016-10-04 03:07] LABS: BASOPHILS % (AUTO) 0.6 % (0-3); EOSINOPHILS % (AUTO) 1.9 % (0-5); MONOCYTES % (AUTO) 8.2 % (4-12); Mean Corpuscular Hemoglobin 31.6 pg (27.0-35.0); Mean Corpuscular Volume 96.6 fL (81-100); NEUTROPHILS % (AUTO) 74.3 % (40-74); Platelet Count 428 bil/L (150-400)
[2016-10-04 03:10] VITALS: BP 100/64; PULSE 108; RESP 18; O2SAT 96
[2016-10-04 03:34] LABS: Magnesium 1.5 mg/dL (1.6-2.6); Phosphorus 5.9 mg/dL (2.5-4.9)
[2016-10-04] MEDS ORDERED: Magnesium Sulf 2 Gm/50mL Water 2 GM in IV Premix 1 EACH IV ONE (06:55)
[2016-10-04 08:00] VITALS: PULSE 106
[2016-10-04 08:04] VITALS: BP 102/71; RESP 20; O2SAT 95
[2016-10-04] MEDS: Multivit-Miner-Folic Acid-Iron Tablet PO SCH (08:15)
[2016-10-04] MEDS: Lactulose 20 Gm/30 mL 30 mL Syrup PO SCH ×2 (08:16→14:05)
[2016-10-04] MEDS: MeTOProlol XL 50 mg ER24 Tablet PO SCH (08:16)
--- NOTE | 2016-10-04 11:43 | PCM.DIMED ---
Danae Clark DO 10/04/16 1143: Discharge Instructions Date of Service Oct 04, 2016 Dates of Hospitalization Sep 23, 2016 at 16:48 Discharge Diagnosis Discharge Diagnosis 1. Atrial fibrillation with RVR 2. Heart failure with preserved EF 3. Transaminitis 4. Alcohol use disorder in active withdrawal 5. History of Seizure disorder 6. Tobacco use disorder 7. Dyslipidemia 8. Uncharacterized psychiatric disorder 9. Hypokalemia/hypomagnesemia. 10. Elevated serum glucose 11. History of Traumatic brain injury 12. History of Psychotic disorder Medication Instructions Some changes were made to your medications during this hospitalization. Start taking the following medications: Metoprolol succinate ER 200mg by mouth twice daily. Rivaroxaban (Xarelto) 20mg by mouth once daily. Torsemide 40mg by mouth once daily Chlordiazepoxide 25mg by mouth twice a day for one day. Then once daily until gone. Continue taking the following medications: Atorvastatin (Lipitor) 40mg by mouth once daily, in the evening. Divalproex ER 1,000mg by mouth once daily, in the evening Olanzapine 10mg by mouth once daily, in the evening Diet Low fat, Low Sodium, Heart Healthy, Diabetic Activity No restrictions Call your provider Shortness of breath, Chest pain, Weakness (unilateral) Patient Instructions It is important that you stop drinking alcohol and follow up with your primary care provider within one week to discuss this hospitalization and medication changes. It is also very important that you are evaluated by a It Portfolio Manager for your irregular heart rate (Atrial fibrillation) as this puts you at a higher risk for complications, including stroke and heart attack. Follow-up plan Follow up with your primary care provider within one week. [facility] [address] [facility] [address], [place] [address] Follow up with Cardiology within two weeks. Cardiology-through the [facility] or Located Within [facility]-Cardiology Follow-up Provider: [facility] Follow-up with PCP in: 1 week Dyan Hannon MD 10/06/16 1634: Discharge Instructions Attending's Statement The patient was seen and examined together with Dr. Clark on 10-05-16 and I agree with the history, exam and plan as outlined in the note above. Danae Clark DO Oct 04, 2016 11:43 Dyan Hannon MD Oct 06, 2016 16:34
[2016-10-04 11:44] VITALS: BP 100/72; PULSE 104; RESP 20; O2SAT 93
[2016-10-04] MEDS ORDERED: RIVA10TA PO (11:47)
[2016-10-04] MEDS ORDERED: TORS20TA PO (11:47)
[2016-10-04] MEDS ORDERED: METO200T32 PO (11:50)
[2016-10-04] MEDS ORDERED: CHLO25CA10 PO (11:50)
--- NOTE | 2016-10-04 12:45 | PCM.DC.MED ---
Discharge Summary Date of Service Oct 04, 2016 Dates of Hospitalization Date of Hospital Admission Sep 23, 2016 at 16:48 Date of Discharge: Oct 04, 2016 Providers: Admitting Physician: Kiarra Cast MD [facility] Attending Physician: Kiarra Cast MD Diagnosis at Time of Discharge Diagnosis at Time of Discharge 1. Atrial fibrillation with RVR 2. Heart failure with preserved EF 3. Transaminitis 4. Alcohol use disorder in active withdrawal 5. History of Seizure disorder 6. Tobacco use disorder 7. Dyslipidemia 8. Uncharacterized psychiatric disorder 9. Hypokalemia/hypomagnesemia. 10. Elevated serum glucose 11. History of Traumatic brain injury 12. History of Psychotic disorder Procedures XRay, CTs & MRIs X-RAY CHEST ONE VIEW, PORTABLE IMPRESSION: Interstitial prominence and cardiomegaly suggesting congestive failure. Dictated and approved by: Mikala Bagley M.D. on 09/25/2016 at 8:20 X-RAY CHEST ONE VIEW, PORTABLE IMPRESSION: Interstitial prominence and cardiomegaly suggesting congestive failure. Dictated by: Mikala Bagley M.D. on 09/25/2016 at 8:20 Approved by: Mikala Bagley M.D. on 09/25/2016 at 8:20 US ABDOMEN IMPRESSION: 1. Echogenic liver. Finding typically represents fatty infiltration; however, finding is nonspecific and correlation with clinical and laboratory findings is recommended to exclude other etiologies including hepatic cirrhosis. 2. Nonvisualization the pancreas which cannot be evaluated. 3. Abdominal sonogram otherwise within normal limits. Dictated by: Corina Pulido MD, PhD on 10/03/2016 at 10:20 Approved by: Corina Pulido MD, PhD on 10/03/2016 at 10:20 . X-RAY CHEST ONE VIEW (10/03/15) IMPRESSION: Mild pulmonary edema possibly related to CHF. Please correlate with clinical data. Dictated and approved by: Corina Pulido MD, PhD on 10/03/2016 at 12:05 ECG 12 Lead Atrial fibrillation with a heart rate of 167, possible old anterior infarct. No acute ischemic changes. Cardiac Echo Impression Echocardiogram Interpretation Summary: The study quality was technically difficult. The left ventricle is normal in size. The left ventricle is hyperdynamic. The ejection fraction is estimated to be 75-80%. Borderline right ventricular enlargement. The right ventricular systolic function is normal. There is trace tricuspid regurgitation. The right ventricular systolic pressure is estimated at 32 mmHg assuming a right atrial pressure of 8 mm Hg. . Brief History Per admission H&P, September 23, 2016. Kiarra Cast MD HISTORY was OBTAINED FROM PATIENT - unreliable [facility] NOTES History of present illness 51-year-old male, alcohol cessation 2 years ago w/ rehab, last EtOH 12 hours ago , 4 -28oz servings per day currently, negative breathalyzer in the ER currently , indicates nocturnal seizures/posturing related to TBI history, went ot [place] urgent care due to SBP 200 at home and indicated that he takes BP meds, though none listed, sent to [facility] ER. In the ER heart rate 178, little improvement will diltiazem 30, but HR improved with metoprolol 5 and magnesium. Banana bag Ativan started. In the ER patient is visually hallucinating people on the curtain and does not follow RN commands well, ongoing shivers/sweating. He indicates poor eating habits x 1 month. no palpitations. no prior afib hx. last vomited several weeks. there are no tele/PCU beds and unable to place dilt gtt order since patient did revert back to RVR w/ symptoms of agitation, despite valium for EtOH withdrawal and nicotine patch for repeated request for his tobacco chew. PRN dilt/metoprolol ordered. digoxin ordered. Last [facility] notes are from 03/10/2015 with planned f/u 03/2016. EKG 2012 SR 90 Qtc 428. Hospital Course Garret Castellon is a 51-year-old gentleman with alcohol use disorder, seizure disorder, psychotic disorder, obesity, and dyslipidemia who was admitted on in active alcohol withdrawal and found to be in Atrial fibrillation with RVR. 1. Atrial fibrillation with RVR, unknown chronicity. Present on admission. Active - Difficulty controlling heart rate with metoprolol as well as diltiazem and patient started on metoprolol succinate q6h on 09/30 with adequate response - Continued rate control with metoprolol succinate which was increased to 200mg twice daily in order to achieve adequate rate control. - Echocardiogram (09/30) showed a hyperdynamic left ventricle with an EF of 75- 80%, consistent with diastolic CHF - Patient was anticoagulated on Subq Lovenox initially and transitioned to Rivaroxaban prior to discharge. - Discharged on Rivaroxaban 20mg once daily and 200mg of metoprolol succinate, twice daily. - Patient advised to follow up with his primary care provider within one week and with Cardiology in 2-4 weeks. 2. Heart failure with preserved EF, unknown chronicity. Present on admission. Active. - Echocardiogram, as above - Chest xray showed signs of fluid overload and patient clinically appeared hypervolemic - He was give oral furosemide, 40mg daily and transitioned to oral torsemide due to inadequate diuresis and clinical appearance of hypervolemia. - Patient discharged on oral torsemide, 40mg once daily. He is to follow up with his PCP and Cardiology as above. 3. Transaminitis, present on admission. Active - On admission patient was actively withdrawing form alcohol. However, LFT elevation consistently elevated throughout hospitalization. - Abdominal ultrasound to assess liver for secondary cause revealed fatty infiltrates and evidence consistent with cirrhosis - Hepatitis panel was negative. - Follow up with PCP as above. - Counseled patient regarding alcohol cessation and weight loss. 4. Alcohol use disorder in active withdrawal, present on admission. - Per his mother mental status is at baseline, pt with hx of traumatic brain injury - Patient's withdrawal were monitored with [facility] protocol in place. Diazepam and chlordiazepoxide taper. - He received thiamine replacement and lactulose - No evidence of ongoing withdrawal at time of discharge. 5. Seizure disorder, chronic. Appears stable. - Likely secondary to previous traumatic brain injury or prior history of withdrawal - No evidence for seizure activity, patient was monitored clinically and received home dosing of divalproex. 6. Tobacco use disorder, present on admission. Active. - Patient received ongoing nicotine replacement therapy 7. Dyslipidemia, chronic. Active. - Continued patient's home dosing of atorvastatin 8. Uncharacterized psychiatric disorder, presumed chronic. Under therapy. - Continued home dosing of olanzapine 9. Hypokalemia/hypomagnesemia. Active - Electrolytes replaced as needed 10. Elevated serum glucose, present on admission, unknown chronicity. - HbA1c 6.3 (09/23/16) - Patient's serum glucose was monitored and a low-dose correctional insulin utilized for control. 11. Chronic conditions, present on admission. Resume home medications. - Traumatic brain injury/mental health-patient was given home dosing of depakote - Psychotic disorder- patient was given home dosing of olanzapine Exam Vital Signs (Last) Date Time Temp Pulse Resp B/P Pulse Ox O2 Delivery O2 Flow Rate FiO2 10/04/16 11:44 36.6 104 20 100/72 93 Room Air 10/04/16 08:04 4.00 Exam General: Well-developed, obese male, sleeping but wakes easily. HEENT: Normocephalic, atraumatic. Anicteric sclerae. Oropharynx normal, mucosa moist. Neck: Supple, non-tender, No jugular venous distension. Cardiovascular: Irregularly irregular, tachycardic, no murmurs, rubs, or gallops appreciated Pulmonary: Clear to auscultation bilaterally, no wheezes, or rhonchi. Normal respiratory effort. Abdomen: Bowel tones present. Soft, nontender, distended. No masses appreciated. Extremities: No clubbing, cyanosis, bilateral lower extremity edema Skin: Normal temperature, damp, perioral erythema and dry, scaly patches Neurological: Alert and oriented to x3, No focal neurologic deficit. Test 09/23/16 11:38 09/23/16 14:53 09/23/16 17:00 09/27/16 23:29 Prothrombin Time 13.3sec (8.1-12.5) Prothromb Time International Ratio 1.24ratio Hemoglobin A1c 6.3% (4.8-5.6) Troponin T < 0.010ug/L (0.0-0.011) Pro-B-Type Natriuretic Peptide 1263pg/mL (0-121) Free Thyroxine Index 2.8 (1.2-4.9) Thyroxine (T4) 9.6ug/dL (4.5-12.0) Triiodothyronine (T3) Uptake 29% (24-39) Hepatitis A IgM Antibody Negative (Negative) Hepatitis B Surface Antigen Negative (Negative) Hepatitis B Core IgM Antibody Negative (Negative) Hepatitis C Antibody <0.1s/co ratio (0.0-0.9) Hepatitis C Comment Comment (.) Hold [place] Top Tube Received (Received) Test 09/29/16 10:44 10/02/16 11:10 10/03/16 03:00 10/04/16 03:00 Hold Urine Received (Received) Triglycerides Level 150mg/dL (0-149) Cholesterol Level 141mg/dL (100-199) LDL Cholesterol, Calculated 81.000mg/dL (0-99) VLDL Cholesterol 30.000mg/dL HDL Cholesterol 30mg/dL (>39) Cholesterol/HDL Ratio 4.70 (0.0-4.4) Procalcitonin 0.20ng/mL (See Comment) White Blood Count 17.4th/mm3 (3.8-10.1) Red Blood Count 4.93mil/mm3 (4.40-5.80) Hemoglobin 15.6g/dL (13.8-17.2) Hematocrit 47.6% (41.0-50.0) Mean Corpuscular Volume 96.6fL (81-100) Mean Corpuscular Hemoglobin 31.6pg (27.0-35.0) Mean Corpuscular Hemoglobin Concent 32.8% (32.0-37.0) Red Cell Distribution Width 14.0% (12.3-15.4) Platelet Count 428bil/L (150-400) Neutrophils (%) (Auto) 74.3% (40-74) Lymphocytes (%) (Auto) 14.5% (14-46) Monocytes (%) (Auto) 8.2% (4-12) Eosinophils (%) (Auto) 1.9% (0-5) Basophils (%) (Auto) 0.6% (0-3) Sodium Level 141mEq/L (134-144) Potassium Level 3.6mEq/L (3.5-5.2) Chloride Level 98mEq/L (97-108) Carbon Dioxide Level 30mmol/L (18-29) Blood Urea Nitrogen 15mg/dL (6-24) Creatinine 0.86mg/dL (0.76-1.27) Estimat Glomerular Filtration Rate 100mL/min (>59) Glucose Level 107mg/dL (60-99) Calcium Level 10.1mg/dL (8.5-10.1) Phosphorus Level 5.9mg/dL (2.5-4.9) Magnesium Level 1.5mg/dL (1.6-2.6) Total Bilirubin 0.6mg/dL (0.0-1.2) Aspartate Amino Transf (AST/SGOT) 98U/L (0-50) Alanine Aminotransferase (ALT/SGPT) 81U/L (0-44) Alkaline Phosphatase 152U/L (25-150) Total Protein 7.2g/dL (6.4-8.4) Albumin 3.2g/dL (3.4-5.0) Test 10/04/16 07:50 Ammonia 79ug/dL (18-53) Microbiology Results Respiratory viral panel negative. MRSA screen negative. Strep pneumoniae urine antigen negative. Hepatitis panel negative. . Discharge Medications Discharge Medications Atorvastatin (Lipitor) 40 Mg Tablet 40 MG PO HS (Reported) Chlordiazepoxide (Chlordiazepoxide) 25 Mg Capsule 25 MG PO BID Prescribed by: TESSIE CONLEY DO Metoprolol Succinate ER (Metoprolol Succinate ER) 200 Mg Tab.er.24h 200 MG PO BID Prescribed by: TESSIE CONLEY DO Multivit with Min #56/FA/K/Q10 (Dekas Plus Chewable Tablet) 200 Mcg-1,000 Mcg- 10 Mg Tab.chew 1 EACH PO DAILY (Reported) Rivaroxaban (Xarelto) 10 Mg Tablet 20 MG PO DAILY@17 Prescribed by: TESSIE CONLEY DO Torsemide (Demadex) 20 Mg Tablet 40 MG PO DAILY Prescribed by: TESSIE CONLEY DO As needed Divalproex ER (Divalproex ER) 500 Mg Tab.er.24h 1,000 MG PO HS PRN PRN For Seizure (Reported) *DAILY DOSING ONLY* Swallowed whole without chewing to avoid local irritation of the mouth and throat. Olanzapine (Olanzapine) 10 Mg Tablet 10 MG PO HS PRN PRN Thought clarity ( Reported) Additional med instructions Some changes were made to your medications during this hospitalization. Start taking the following medications: Metoprolol succinate ER 200mg by mouth twice daily. Rivaroxaban (Xarelto) 20mg by mouth once daily. Torsemide 40mg by mouth once daily Chlordiazepoxide 25mg by mouth twice a day for one day. Then once daily until gone. Continue taking the following medications: Atorvastatin (Lipitor) 40mg by mouth once daily, in the evening. Divalproex ER 1,000mg by mouth once daily, in the evening Olanzapine 10mg by mouth once daily, in the evening Followup Plan Follow-up plan Follow up with your primary care provider [facility] [address], [place] [address] Follow up with Cardiology within two weeks. Cardiology-through the [facility] or [facility]-Cardiology Discharge Diet: Low fat, Low Sodium, Heart Healthy, Diabetic Discharge Activity: No restrictions Patient Instructions It is important that you stop drinking alcohol and follow up with your primary care provider within one week to discuss this hospitalization and medication changes. It is also very important that you are evaluated by a Digital Product Specialist for your irregular heart rate (Atrial fibrillation) as this puts you at a higher risk for complications, including stroke and heart attack. Follow-up Provider: [facility] Follow-up with PCP in: 1 week Attending Statement The patient was seen and examined together with Dr. Conley on 10-05-16 and I agree with the history, exam and plan as outlined in the note above. Tessie Conley DO Oct 04, 2016 12:45 Dyan Hannon MD Oct 06, 2016 16:35
--- NOTE | 2016-10-04 15:00 | NUR ---
Social Work Note: Discharge Data& Assessment: Per pt is medically ready to discharge home with his mom via POV. Garret Castellon is a 51 year old male admitted on for A-FIB and RVR. Per pt is medically improved and ready to discharge. Pt is discharging to his mothers home. SW confirmed with pt mom she is transporting him from the hospital. Pt and pt mother denies any other needs. Pt mother plans [facility] post discharge. No other discharge needs identified. Plan: Per pt is medically ready to discharge home with his mom via POV [facility] and [facility] with [facility]. Pt and pt mother deny any other needs. No other discharge needs identified. NORA Mann
--- NOTE | 2016-10-04 15:05 | NUR ---
Discharge patient discharged at 1450hrs today. Patient went home with mother. discharge instructions reviewed with patient and mother. Reviewed new A-fib and heart failure diagnoses. discussed daily weight checks and record, low sodium diet and reviewed medication. patient's mother agreed to help set up follow-up appointments. Patient's mother agreed to help with mediations. both patient and mother verbalized understanding and agreed with plan of care. .
== END 2016-10-04 15:25 | disposition home or self-care (01) | DRG 897 ==
LOC: SED 10:28 → MPC 16:48 → PCC 09-24 15:02 → CCU 09-24 16:53 → PCC 09-27 15:02
PROVIDERS: ADMIT Urology; ATTEND Urology
DX: F10.231 Alcohol dependence with withdrawal delirium (principal); I50.30 Unspecified diastolic (congestive) heart failure; I48.91 Unspecified atrial fibrillation; Z87.820 Personal history of traumatic brain injury; E78.5 Hyperlipidemia, unspecified; Z72.0 Tobacco use; K52.9 Noninfective gastroenteritis and colitis, unspecified; R73.09 Other abnormal glucose; G40.909 Epilepsy, unspecified, not intractable, without status epilepticus; F99 Mental disorder, not otherwise specified; E87.6 Hypokalemia; E83.42 Hypomagnesemia; E66.9 Obesity, unspecified; Z68.35 Body mass index [BMI] 35.0-35.9, adult